=== PATIENT | male | born 1980 | race Caucasian/White ===

== ENCOUNTER 2019-06-09 16:46 | Emergency (ER) | payer OTHER, SELFPAY ==
[2019-06-09 17:10] VITALS: BP 116/83; PULSE 120; RESP 18; TEMP 36.5; O2SAT 98; BMI 24.0
--- NOTE | 2019-06-09 17:50 | ED_ITS ---
HPI - Abdominal Pain General: Chief Complaint: Abdominal Pain Stated Complaint: abd pain Time Seen by Provider: 06/09/19 17:45 History of Present Illness: HPI narrative: Kiet is a 39-year-old male who comes in complaining of a 3-day history of nausea vomiting and diarrhea. He states that he has not had a fever. Anytime she eats or drinks his symptoms become much worse. He denies any blood in the stools or black tarry stools. He denies anything similar in the past. He has had no ill contacts. Associated Symptoms: Reports diarrhea, nausea and vomiting; Denies chills, coffee ground emesis, constipation, GI cramping, dysuria, fever(s), hematochezia, hematuria, hematemesis, melena and syncope Review of Systems General: Reports: other (negative unless marked) Const: Denies: fever, chills, body aches, fatigue, malaise or diaphoresis Eyes: Denies: change in vision or blurry vision ENMT: Denies: throat pain, painful swallowing, hoarseness, ear pain, ear discharge, Change in hearing or nasal discharge Card: Denies: chest pain, palpitations, irregular heart rhythm, syncope, pre- syncope, shortness of breath on exertion or shortness of breath when lying down Resp: Denies: shortness of breath, productive cough, non-productive cough, wheezing, coughing up blood or chest congestion GI: Reports: abdominal pain, nausea, vomiting and diarrhea; Denies: vomiting blood, coffee grounds in vomit, constipation, cramping, blood in stool or black tarry stool : Denies: flank pain, difficulty urinating, painful urination, urinary frequency, urinary urgency, decreased urine ouput, urinary incontinence or blood in urine Musc: Denies: neck pain, back pain, extremity pain, extremity swelling, joint pain, joint swelling, joint warmth or joint stiffness Skin/Breast: Denies: rash, skin tenderness or yellow skin Neuro: Denies: headache, numbness in extremities, weakness in extremities, changes in sensation, lack of coordination, difficulty walking, dizziness, vertigo or confusion Endo: Denies: excessive thirst, tired all the time, cold intolerance, excessive sweating, flushing or hot flashes Jorge/Lymph: Denies: easy bruising, easy bleeding, petechiae or enlarged lymph nodes All/Imm: Denies: hives, throat swelling, tongue swelling, facial swelling or acute wheezing PFSH ED PFSH: Medical History No pertinent past medical history Surgical History History of surgery on left wrist Family History Father CAD (coronary artery disease) Mother Rheumatoid arthritis Social History Smoking and tobacco status: current every day smoker Alcohol intake: never Lives independently: Yes Household members: spouse Marital status: Physical Exam Const: COMMON NORMALS: no apparent distress, oriented x3, no limitations, healthy appearing and well nourished EXAM LIMITATIONS: no altered mental status GENERAL APPEARANCE: cooperative, well kempt and well developed ORIENTATION/CONSCIOUSNESS: Yes awake HENMT: COMMON NORMALS: normocephalic, head/scalp atraumatic, hearing grossly normal bilaterally, external ears normal, EAC's normal, external nose normal and moist oral mucous membranes HEAD & SCALP: normal to inspection, normocephalic and atraumatic FACE & SINUS: normal facial exam and face symmetric NOSE: external nose normal and nares normal EXTERNAL EAR: Yes external ears normal EXTERNAL AUDITORY CANAL: EAC's normal MOUTH: oral and palatal mucosa normal and tongue normal Eye: COMMON NORMALS: PERRL, EOMs intact bilaterally, conjunctivae normal and no scleral icterus GENERAL EYE: normal appearance of both eyes and normal light reflex CONJUNCTIVA: Yes conjunctivae normal SCLERA: sclerae normal CORNEA: Yes corneas normal PUPIL: Yes PERRL DIRECT OPHTHALMOSCOPY: Yes normal light reflex Neck/C-Spine: COMMON NORMALS: full ROM, no lymphadenopathy, supple, no meningeal signs and no JVD GENERAL: Yes normal visual inspection and Yes trachea midline CERVICAL SPINE: Yes cervical ROM normal Chest: COMMONS NORMALS: inspection of chest normal and palpation of chest normal Resp: COMMON NORMALS: normal respiratory effort, no retractions, no use of accessory muscles and clear to auscultation bilaterally EFFORT & INSPECTION: Yes able to speak in complete sentences AUSCULTATION: clear to auscultation bilaterally Cardio: COMMON NORMALS: no JVD, regular rate, regular rhythm, S1 normal heart sound, S2 normal heart sound, no gallops, no clicks, no murmurs and no rub JUGULAR VENOUS DISTENTION: no JVD RATE: regular rate RHYTHM: regular rhythm HEART SOUNDS: S1 normal and S2 normal GI: COMMON NORMALS: soft to palpation, no hepatosplenomegaly and no masses PALPATION: Yes soft, Yes tender Details: LLQ and RLQ and Yes no hepatosplenomegaly : COMMON NORMALS: Yes no CVA tenderness BLADDER/KIDNEY EXAM: Yes no CVA tenderness Back/Pelvis: COMMON NORMALS: no CVA tenderness, thoracic and lumbar spine normal to inspection, no thoracic nor lumbar tenderness and thoraco-lumbar ROM normal Extremity: COMMON NORMALS: normal to inspection, full ROM, normal capillary refill, no joint enlargement, no clubbing, cyanosis or edema and no calf tenderness Neuro: COMMON NORMALS: oriented x3, CN's II-XII intact bilaterally, moves all extremities, no focal motor deficits and no sensory deficits noted MENINGEAL SIGNS: Yes no meningeal signs Psych: COMMON NORMALS: mental status grossly normal, thought process normal, cooperative, affect normal, speech normal and activity/motor behavior normal APPEARANCE: Yes well kempt SPEECH: Yes normal speech THOUGHT PROCESS: normal thought process Skin: COMMON NORMALS: no rashes or lesions noted, skin turgor normal, no jaundice, no petechiae and no mottling GENERAL SKIN EXAM: no rashes or lesions noted and turgor normal Course Vital Signs: Vital signs: Vital Signs Temperature 97.7 F 06/09/19 17:10 Pulse Rate 120 H 06/09/19 17:10 Respiratory Rate 18 06/09/19 18:47 Blood Pressure 116/83 06/09/19 17:10 Pulse Oximetry 98 06/09/19 18:47 MDM - Abdominal Pain MDM Narrative: Medical decision making narrative: Patient CT scan is consistent with a gastroenteritis and a questionable cystitis. His urine does not really support a cystitis. I will treat him with Cipro and Flagyl to cover for both cystitis and a colitis/gastroenteritis. The patient is feeling much better now. His heart rate is back to normal and he is wanting to eat and drink as I work on my note. The patient is ready to go home but he does agree to return should his symptoms worsen or change. Lab Data: Labs: Lab Results 06/09/19 06/09/1906/08/20 Range/Units 18:00 18:00 18:03 WBC 18.0 H (4.0-10.0) 10^3/ uL RBC 5.64 H (4.1-5.3) 10^6/u L Hgb 18.2 H (11.7-16.6) g/dL Hct 54.0 H (42.0-52.0) % MCV 95.7 H (80-94) fL MCH 32.3 (28.0-34.0) pg MCHC 33.7 (30.0-36.0) g/dL RDW 12.4 (12.1-15.1) % Plt Count 486 H (130-400) 10^3/c mm MPV 9.4 (7.4-10.4) fL Neut % (Auto) 63.9 % Lymph % (Auto) 27.9 % Clarke % (Auto) 6.3 % Eos % (Auto) 0.9 % Baso % (Auto) 0.6 % Neut # (Auto) 11.5 H (1.8-7.7) 10^3/u L Lymph # (Auto) 5.0 H (0.8-4.8) 10^3/u L Clarke # (Auto) 1.1 H (0.2-0.9) 10^3/u L Eos # (Auto) 0.2 (0.0-0.8) 10^3/u L Baso # (Auto) 0.1 (0.0-0.1) 10^3/u L Nucleated RBC % (a uto) 0 % Nucleated RBCs # 0.0 /100WBC Sodium 134 L (136-145) mmol/L Potassium 4.0 (3.5-5.1) mmol/L Chloride 97 L (98-107) mmol/L Carbon Dioxide 23 (22-29) mmol/L Anion Gap 18.0 (5-19) BUN 16 (6-20) mg/dL Creatinine 1.2 (0.7-1.2) mg/dL GFR Calculation 67.4 L (90-130) mL/min Glucose 93 (65-115) mg/dL Calculated Osmolal ity 274 L (285-295) mOsm/k g Lactic Acid (0.5-2.2) mmol/L Calcium 10.4 (8.5-10.5) mg/dL Total Bilirubin 0.4 (0.15-1.2) mg/dL AST 18 (0-40) U/L ALT 21 (0-41) U/L Alkaline Phosphata se 107 (40-130) IU/L Total Protein 7.3 (6.6-8.7) g/dL Albumin 4.5 (3.5-5.2) g/dL Globulin 2.8 (1.3-4.6) g/dL Urine Color Yellow (Yellow) Urine Appearance Clear (CLEAR) Urine pH 6.5 (5-7) Ur Specific Gravit y 1.015 (1.005-1.030) Urine Protein Trace (Negative) Urine Glucose (UA) Norm (Normal) Urine Ketones 1+ H (Negative) Urine Blood Neg (Negative) Urine Nitrate Negative (Negative) Urine Bilirubin 1+ H (NEGATIVE) Urine Urobilinogen 8 H (Negative) mg/dL Ur Leukocyte Syeda ase Negative (Negative) Urine RBC None (0-2) /hpf Urine WBC 0-4 H (0-5) /hpf Ur Squamous Epith Cells 0-4 H (0-5) Urine Bacteria Trace (NONE) Urine Mucus 4+ 04/16/20 Range/Units 18:30 WBC (4.0-10.0) 10^3/ uL RBC (4.1-5.3) 10^6/u L Hgb (11.7-16.6) g/dL Hct (42.0-52.0) % MCV (80-94) fL MCH (28.0-34.0) pg MCHC (30.0-36.0) g/dL RDW (12.1-15.1) % Plt Count (130-400) 10^3/c mm MPV (7.4-10.4) fL Neut % (Auto) % Lymph % (Auto) % Clarke % (Auto) % Eos % (Auto) % Baso % (Auto) % Neut # (Auto) (1.8-7.7) 10^3/u L Lymph # (Auto) (0.8-4.8) 10^3/u L Clarke # (Auto) (0.2-0.9) 10^3/u L Eos # (Auto) (0.0-0.8) 10^3/u L Baso # (Auto) (0.0-0.1) 10^3/u L Nucleated RBC % (a uto) % Nucleated RBCs # /100WBC Sodium (136-145) mmol/L Potassium (3.5-5.1) mmol/L Chloride (98-107) mmol/L Carbon Dioxide (22-29) mmol/L Anion Gap (5-19) BUN (6-20) mg/dL Creatinine (0.7-1.2) mg/dL GFR Calculation (90-130) mL/min Glucose (65-115) mg/dL Calculated Osmolal ity (285-295) mOsm/k g Lactic Acid 1.4 (0.5-2.2) mmol/L Calcium (8.5-10.5) mg/dL Total Bilirubin (0.15-1.2) mg/dL AST (0-40) U/L ALT (0-41) U/L Alkaline Phosphata se (40-130) IU/L Total Protein (6.6-8.7) g/dL Albumin (3.5-5.2) g/dL Globulin (1.3-4.6) g/dL Urine Color (Yellow) Urine Appearance (CLEAR) Urine pH (5-7) Ur Specific Gravit y (1.005-1.030) Urine Protein (Negative) Urine Glucose (UA) (Normal) Urine Ketones (Negative) Urine Blood (Negative) Urine Nitrate (Negative) Urine Bilirubin (NEGATIVE) Urine Urobilinogen (Negative) mg/dL Ur Leukocyte Syeda ase (Negative) Urine RBC (0-2) /hpf Urine WBC (0-5) /hpf Ur Squamous Epith Cells (0-5) Urine Bacteria (NONE) Urine Mucus Discharge Plan Discharge Patient Disposition: Home, Self-Care Clinical Impression: Gastroenteritis, Cystitis Condition: Stable Prescriptions: New Zofran 4 mg tablet 4 mg PO Q6H PRN (Reason: nausea and vomiting) Qty: 20 RF: 0 Flagyl 500 mg tablet 500 mg PO TID 10 Days Qty: 30 RF: 0 Cipro 500 mg tablet 500 mg PO BID Qty: 20 RF: 0 Discharge Orders: Discharge Order (Routine); Ordered 06/09/19 Ordered By: Crystal Benítez Referrals: Cresencio Lucero FNP-C [Primary Care Provider] - 1-3 days Discharge Diet: Advance as tolerated Discharge Activity: Increase activity as tolerated Patient Instructions: Dehydration (ED), Urinary Tract Infection in Men (ED), Gastroenteritis (ED), Acute Nausea and Vomiting (ED) Activity Restrictions/Additional Instructions: Please return to the ER immediately for any of the signs or symptoms listed on your discharge instruction sheets, worsening/changing of your symptoms, you are not getting better as quickly as expected, or for ANY other cause or concerns. Stand Alone Forms: Work/School Release Coding Level of Care Code ED Source Water Protection Specialist for Chg Fwd Exam Comprehensive
--- NOTE | 2019-06-09 17:50 | CTR_ITS ---
PROCEDURE INFORMATION: Exam: CT Abdomen And Pelvis With Contrast Exam date and time: 06/09/2019 7:20 PM Age: 39 years old Clinical indication: Other: Vomits after eating; Abdominal pain; Localized; Lower TECHNIQUE: Imaging protocol: Computed tomography of the abdomen and pelvis with intravenous contrast. Total DLP: 648.32 mGy-cm Radiation optimization: All CT scans at this facility use at least one of these dose optimization techniques: automated exposure control; mA and/or kV adjustment per patient size (includes targeted exams where dose is matched to clinical indication); or iterative reconstruction. Contrast material: OMNI 300; Contrast volume: 95 ml; Contrast route: IV; COMPARISON: [facility] Thorac/Abd Aor [id number] 02/17/2015 6:34 PM FINDINGS: Lungs: Limited assessment lung bases clear. Liver: Unremarkable. No mass. Gallbladder and bile ducts: Normal. No calcified stones. No ductal dilation. Pancreas: Normal. No ductal dilation. Spleen: Normal. No splenomegaly. Adrenals: Normal. No mass. Kidneys and ureters: Normal. No hydronephrosis. Stomach and bowel: Examination reveals gastric mucosal thickening and increased enhancement. Diffuse duodenal and jejunal mucosal thickening and enhancement. The a for mention findings would be consistent with gastroenteritis. Diverticulosis coli without evidence for diverticulitis. Nonobstructive bowel pattern. No evidence for adynamic ileus. No evidence for ileitis. Appendix: Appendix noninflamed. Intraperitoneal space: Unremarkable. No free air. No significant fluid collection. Vasculature: The abdominal aorta is nonaneurysmal. Minimal arterial sclerotic disease. Lymph nodes: No evidence for acute mesenteritis/panniculitis or mesenteric lymphadenitis/lymphadenopathy. Bladder: Small amount of free air within the urinary bladder with diffuse bladder wall thickening. This suggest the potential for active/acute bacterial cystitis. Tiny bladder stone. Reproductive: Unremarkable as visualized. Bones/joints: Rare bone island. No visible acute osseous abnormality. Moderate degenerative disc disease L5/S1. Bilateral spondylolysis L5/S1 with mild anterior grade 1 spondylolisthesis. Soft tissues: Unremarkable. CT/CT abdomen pelvis w con* [id number] IMPRESSION: 1. Acute gastroenteritis. 2. Findings consistent with active/acute cystitis. 3. Tiny bladder stone. Radiation Dose CTDIVOL = (mGy): DLP = 648.32 (mGy-cm)
[2019-06-09 18:17] LABS: Basophils # 0.1 10^3/uL (0.0-0.1); Basophils % 0.6 %; Eosinophils # 0.2 10^3/uL (0.0-0.8); Eosinophils % 0.9 %; Hemoglobin 18.2 g/dL (11.7-16.6); Lymphocytes % 27.9 %; Mean Corpuscular HGB Conc 33.7 g/dL (30.0-36.0); Mean Corpuscular Hemoglobin 32.3 pg (28.0-34.0); Mean Corpuscular Volume 95.7 fL (80-94); Mean Platelet Volume 9.4 fL (7.4-10.4); Monocytes # 1.1 10^3/uL (0.2-0.9); Monocytes % 6.3 %; Neutrophils # 11.5 10^3/uL (1.8-7.7); Neutrophils % 63.9 %; Nucleated Red Blood Cells % 0 %; Platelet Count 486 10^3/cmm (130-400); Red Blood Count 5.64 10^6/uL (4.1-5.3); Red Cell Distribution Width 12.4 % (12.1-15.1)
[2019-06-09 18:29] LABS: Albumin Level 4.5 g/dL (3.5-5.2); Chloride 97 mmol/L (98-107); Sodium 134 mmol/L (136-145)
[2019-06-09 18:44] LABS: Glucose Urine UA Norm (Normal); Ketones Urine 1+ (Negative); Protein Urine Trace (Negative); Specific Gravity, Urine 1.015 (1.005-1.030); Urine Appearance Clear (CLEAR); Urine Color Yellow (Yellow); pH Urine 6.5 (5-7)
[2019-06-09 18:45] LABS: Add Urine Culture? No; Bacteria Urine TRACE; Bilirubin Urine 1+ (NEGATIVE); Blood Urine Neg (Negative); Leukocyte Esterase Urine Negative (Negative); Mucus Urine 4+; Nitrate Urine Negative (Negative); Squamous Epithelial Cell Urine 0-4 (0-5); Urobilinogen Urine 8 mg/dL (Negative); WBC Urine 0-4 /hpf (0-5)
[2019-06-09] MEDS: sodium chloride 0.9% 1,000 ML 999 ML IV ×2 (18:45→20:08)
[2019-06-09] MEDS: ondansetron 2 mg/ML SDV 2 mL 4 MG IVP (18:46)
[2019-06-09 18:47] VITALS: RESP 18; O2SAT 98
[2019-06-09] MEDS: morphine 4 mg/mL SDV 1 mL IVP (18:47)
[2019-06-09 19:08] LABS: Lactic Sepsis W/Reflex 1.4 mmol/L (0.5-2.2)
[2019-06-09 19:19] LABS: Alanine Aminotransferase 21 U/L (0-41); Alkaline Phosphatase 107 IU/L (40-130); Aspartate Amino Transferase 18 U/L (0-40); Blood Urea Nitrogen 16 mg/dL (6-20); Calcium 10.4 mg/dL (8.5-10.5); Carbon Dioxide 23 mmol/L (22-29); Globulin 2.8 g/dL (1.3-4.6); Glomerular Filtration Rate 67.4 mL/min (90-130); Glucose 93 mg/dL (65-115); Osmolality Calculated 274 mOsm/kg (285-295); Total Bilirubin 0.4 mg/dL (0.15-1.2); Total Protein 7.3 g/dL (6.6-8.7)
[2019-06-09] MEDS: iohexol 300 mg/mL 100 mL Btl IV (19:31)
[2019-06-09] MEDS: metroNIDAZOLE 500 MG Tablet PO (20:25)
[2019-06-09] MEDS: ciprofloxacin 500 mg Tablet PO (20:25)
[2019-06-09 20:42] VITALS: BP 134/86; PULSE 86; RESP 16; O2SAT 96
== END 2019-06-09 20:42 | disposition home or self-care (01) ==
PROVIDERS: Emergency Provider Emergency Medicine; Family Provider Nurse Practitioner; PCP Nurse Practitioner
DX: K52.9 Noninfective gastroenteritis and colitis, unspecified (principal); N30.90 Cystitis, unspecified without hematuria; Z82.49 Family history of ischemic heart disease and other diseases of the circulatory system; F17.210 Nicotine dependence, cigarettes, uncomplicated
CPT/HCPCS: 12345; 36415; 74177; 80053; 81000; 81001; 83605; 85025; 96361; 96374; 96375; 99283; 99284; J2270; J2405; J7030; Q9967

== ENCOUNTER 2019-07-26 10:36 | Emergency (ER) | payer OTHER, SELFPAY ==
[2019-07-26 10:53] VITALS: BP 136/96; PULSE 85; RESP 16; TEMP 36.4; O2SAT 99; BMI 24.4
--- NOTE | 2019-07-26 11:10 | W.ED.NAVMDI ---
HPI - Nausea/Vomiting/Diarrhea General: Chief complaint: Nausea/Vomiting/Diarrhea Stated complaint: N/V Time Seen by Provider: 07/26/19 10:39 Source: patient Mode of arrival: ambulatory History of Present Illness: HPI Narrative: NV x 4 days; unable to hold any liquids down MD elicited complaint: nausea, vomiting, diarrhea and abdominal pain (epigastric) Associated nausea: Yes Associated symtoms: Reports nausea Review of Systems General: Reports: 10 or more systems reviewed and unremarkable except in HPI and below Const: Reports: body aches; Denies: fever(s) or chills GI: Reports: abdominal pain, nausea, vomiting and diarrhea PFSH ED PFSH: Medical History No pertinent past medical history Surgical History History of surgery on left wrist Family History Father CAD (coronary artery disease) Mother Rheumatoid arthritis Social History Smoking and tobacco status: current every day smoker Alcohol intake: never Lives independently: Yes Household members: spouse Marital status: Physical Exam Const: COMMON NORMALS: no acute distress, patient oriented x3, no limitations and alert GENERAL APPEARANCE: cooperative and comfortable ORIENTATION/CONSCIOUSNESS: Yes awake, Yes oriented to person, Yes oriented to place and Yes oriented to time HENMT: COMMON NORMALS: normocephalic, atraumatic, external ears normal, EAC's normal, TM's normal bilaterally and Normal external nose present HEAD & SCALP: normal to inspection, normocephalic and atraumatic FACE & SINUS: normal facial exam, sinuses nontender and face symmetric NOSE: Normal external nose present, Normal nares present and No nasal discharge present EXTERNAL EAR: Yes external ears normal EXTERNAL AUDITORY CANAL: EAC's normal TYMPANIC MEMBRANE: TM's normal bilaterally MOUTH: Normal oral and palatal mucosa present, lip normal and tongue normal THROAT: posterior oropharynx normal, tonsils normal and uvula midline Eye: COMMON NORMALS: Equal, round and reactive pupils present, EOMs intact bilaterally and conjunctivae normal GENERAL EYE: appearance normal, both eyes and all related structures and normal light reflex EYELID: eyelids normal CONJUNCTIVA: Yes conjunctivae normal PUPIL: Yes Equal, round and reactive pupils present EOM: Yes EOM abnormal DIRECT OPHTHALMOSCOPY: Yes normal light reflex Neck/C-Spine: COMMON NORMALS: full ROM, no lymphadenopathy, supple, no meningeal signs, no JVD and Thyroid normal GENERAL: Yes normal visual inspection THYROID: Thyroid normal CERVICAL SPINE: Yes cervical ROM normal and Yes normal cervical lordosis Lymph: LYMPHATIC: no lymphadenopathy noted Chest: COMMONS NORMALS: normal inspection of the chest and normal palpation of entire chest wall Resp: COMMON NORMALS: normal respiratory effort, No retractions and clear to auscultation bilaterally AUSCULTATION: clear to auscultation bilaterally Cardio: COMMON NORMALS: no JVD, regular rate, regular rhythm, S1 normal heart sound present, S2 normal heart sound present, No gallops present (Cardio), No clicks present (Cardio), No murmurs present (Cardio), No rub (Cardio) and Peripheral pulses 2+ throughout RATE: regular rate RHYTHM: regular rhythm HEART SOUNDS: S1 normal heart sound present and S2 normal heart sound present PERIPHERAL PULSES: Peripheral pulses 2+ throughout GI: COMMON NORMALS: Normal to inspection, nondistended, normoactive bowel sounds present, Soft to palpation, non-tender and no masses PALPATION: Yes Soft to palpation : COMMON NORMALS: Yes no CVA tenderness BLADDER/KIDNEY EXAM: Yes no CVA tenderness Back/Pelvis: COMMON NORMALS: no CVA tenderness, thoracic and lumbar spine normal to inspection, no thoracic nor lumbar tenderness and thoraco-lumbar ROM normal Extremity: COMMON NORMALS: normal to inspection, full ROM, capillary refill normal, no joint enlargement, no clubbing, cyanosis or edema, no calf tenderness and no pedal edema GENERAL: Yes normal exam except as noted Neuro: COMMON NORMALS: patient oriented x3, moves all extremities, no focal motor deficits, no sensory deficits noted and gait normal SENSORIUM/ORIENTATION: Yes alert, Yes oriented to person, Yes oriented to place and Yes oriented to time MENINGEAL SIGNS: Yes no meningeal signs Psych: COMMON NORMALS: mental status grossly normal, Normal thought process present, cooperative, normal affect, speech normal and activity/motor behavior normal SPEECH: Yes normal speech THOUGHT PROCESS: Normal thought process present Skin: COMMON NORMALS: no rashes or lesions noted, no wounds and turgor normal GENERAL SKIN EXAM: no rashes or lesions noted and turgor normal Course ED course: Pt prsents to ER with complaint of NV excessively x 4 days. He is weak and urinating very little. He cannot hold water down. 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 IV fluids and labs ordered. Vitals stable upon arrival. Reevaluation(s): Reevaluation #1: US gb ordered; WBC elevated at 17. CT recommends further imaging of GB due to stones. Negative colon findings. Time: 13:20 Reevaluation #2: US indicates no thickening of gb wall. Dr. Watson called. GI cocktail ordered and with elevated wbc and no ct or US acute findings of cholecystitis will treat like gastroenteritis. IV antibx were given prophylactically as pt is does not require hospital admission at this time and has improved overall since his arrival. We will DC after infusion of antibx and oral meds given. Time: 15:11 Vital Signs: Vital signs: Vital Signs Temperature 97.6 F 07/26/19 10:53 Pulse Rate 85 07/26/19 10:53 Respiratory Rate 16 07/26/19 10:53 Blood Pressure 136/96 07/26/19 10:53 Pulse Oximetry 99 07/26/19 10:53 MDM - Nausea/Vomiting/Diarrhea Lab Data: Labs: Lab Results 07/26/19 07/26/19 07/26/19 Range/Units 11:16 11:17 11:17 WBC 17.9 H (4.0-10.0) 10^3/ uL RBC 5.54 H (4.1-5.3) 10^6/u L Hgb 17.7 H (11.7-16.6) g/dL Hct 51.8 (42.0-52.0) % MCV 93.5 (80-94) fL MCH 31.9 (28.0-34.0) pg MCHC 34.2 (30.0-36.0) g/dL RDW 12.3 (12.1-15.1) % Plt Count 473 H (130-400) 10^3/c mm MPV 10.2 (7.4-10.4) fL Neut % (Auto) 75.3 % Lymph % (Auto) 18.5 % [place] % (Auto) 4.8 % Eos % (Auto) 0.5 % Baso % (Auto) 0.5 % Neut # (Auto) 13.5 H (1.8-7.7) 10^3/u L Lymph # (Auto) 3.3 (0.8-4.8) 10^3/u L [place] # (Auto) 0.9 (0.2-0.9) 10^3/u L Eos # (Auto) 0.1 (0.0-0.8) 10^3/u L Baso # (Auto) 0.1 (0.0-0.1) 10^3/u L Nucleated RBC % (a uto) 0 % Nucleated RBCs # 0.0 /100WBC Sodium 135 L (136-145) mmol/L Potassium 4.4 (3.5-5.1) mmol/L Chloride 100 (98-107) mmol/L Carbon Dioxide 23 (22-29) mmol/L Anion Gap 16.4 (5-19) BUN 15 (6-20) mg/dL Creatinine 1.0 (0.7-1.2) mg/dL GFR Calculation 83.2 L (90-130) mL/min Glucose 104 (65-115) mg/dL Calculated Osmolal ity 277 L (285-295) mOsm/k g Calcium 10.2 (8.5-10.5) mg/dL Total Bilirubin 0.7 (0.15-1.2) mg/dL AST 17 (0-40) U/L ALT 26 (0-41) U/L Alkaline Phosphata se 106 (40-130) IU/L Total Protein 7.3 (6.6-8.7) g/dL Albumin 4.7 (3.5-5.2) g/dL Globulin 2.6 (1.3-4.6) g/dL Urine Color Yellow (Yellow) Urine Appearance Clear (CLEAR) Urine pH 7.0 (5-7) Ur Specific Gravit y 1.010 (1.005-1.030) Urine Protein Neg (Negative) Urine Glucose (UA) Norm (Normal) Urine Ketones 1+ H (Negative) Urine Blood Neg (Negative) Urine Nitrate Negative (Negative) Urine Bilirubin Neg (NEGATIVE) Urine Urobilinogen 1 H (Negative) mg/dL Ur Leukocyte Syeda ase Negative (Negative) Imaging Data^: Other CT: Radiologist's impression: [id number] Study Date: 07/26/2019 12:02:41 PM Order #: [id number] Report Status: Finalized Reason: abd pain/nv [facility] [address] [place] [address] CT Scan Report Signed Patient: Kiet Hicks Unit #: [id number] : 1980 Age/Sex: 39 / M ADM Date: 07/26/19 Loc: ER Room/Bed: Attending Dr: Ordering Provider/Ordering MD: Susan Sandhu NP Date of Service: 07/26/19 Procedure(s): CT abdomen wo/w con [id number] Accession Number(s): [id number] Report Number: [id number] WS: [id number] CT abdomen wo/w con [id number] REASON FOR EXAM: abd pain/nv IV CONTRAST ADMINISTERED: [place] 300, 95 mL TOTAL EXAM DLP: 1185.[address] scans at [facility] use at least one of these dose optimization techniques: automated exposure control; mA and/or kV adjustment per patient size (includes targeted exams where dose is matched to clinical indication); or iterative reconstruction. FINDINGS: The lower lung perez and mediastinum appear to be normal. The liver show normal appearance no infiltrating lesions. Gallbladder shows small densities along the inferior aspects suggesting gallstones. The pancreas was normal. Stomach showed no filling defects. The ascending colon shows fecal stasis no definite masses. No acute appendicitis is noted. Both kidneys were normal with normal appearance no stones no hydronephrosis. No adrenal glands were normal no masses. The transverse colon and descending colon show diverticulosis. This extends down into the sigmoid colon no diverticulitis is seen. The urinary bladder today was normal in appearance the crawley were not thickened Prostate. 5.2 x 7 cm no infiltrating lesions are seen. The pelvis bony structures were normal as well as the lumbar spine. CT/CT abdomen wo/w con [id number] Impression: Questionable small gallstone. Fecal stasis throughout the colon Diverticulosis of the transverse descending and sigmoid colon. No diverticulitis. Mildly enlarged prostate Recommend ultrasound of the gallbladder be made to definitely rule out stones as the colon on the CT are minimal. Dictated By: Cooper Miramontes DO Signed By: Cooper Miramontes DO Signed Date/Time: 07/26/19 1243 US: Radiologist's impression: [address] [address] Ultrasound Report Signed Patient: Kiet Hicks Unit #: [id number] : 1980 Age/Sex: 39 / M ADM Date: 07/26/19 Loc: ER Room/Bed: Attending Dr: Ordering Provider/Ordering MD: Susan Sandhu NP Date of Service: 07/26/19 Procedure(s): US gall bladder 78702 Accession Number(s): [id number] Report Number: [id number] WS: [id number] ABDOMINAL ULTRASOUND LIMITED REASON FOR VISIT: abd pain TECHNIQUE: Grayscale and Doppler ultrasound examination of the abdomen. FINDINGS: Pancreas: Normal Abdominal aorta and IVC: Normal Liver: Liver measures 14.7 cm in length. Hepatopedal circulation the portal system. No mass is seen. Gallbladder: Gallbladder wall thickness measures 0.2 mm. No stones or polyps. Common bile duct measured 0.40 cm. Right kidney: Right kidney measures 10.5 cm x 5.3 cm x 5.0 cm. Hydronephrosis no stones. US/US gall bladder [id number] IMPRESSION: Normal right upper quadrant ultrasound. Dictated By: Cooper Miramontes DO Signed By: Cooper Miramontes DO Signed Date/Time: 07/26/19 1410 DD/ 1408 Discharge Plan Discharge Prescriptions: No Action No Known Home Medications RF: 0 Coding Level of Care Code ED Tube Builder Airplane for Chg Fwd Exam Comprehensive
[2019-07-26] MEDS: sodium chloride 0.9% 500 ML 999 ML IV (11:21)
[2019-07-26] MEDS: ondansetron 2 mg/ML SDV 2 mL 4 MG IVP ×2 (11:22→15:15)
[2019-07-26 11:31] LABS: Basophils # 0.1 10^3/uL (0.0-0.1); Basophils % 0.5 %; Eosinophils # 0.1 10^3/uL (0.0-0.8); Eosinophils % 0.5 %; Hematocrit 51.8 % (42.0-52.0); Hemoglobin 17.7 g/dL (11.7-16.6); Lymphocytes # 3.3 10^3/uL (0.8-4.8); Lymphocytes % 18.5 %; Mean Corpuscular HGB Conc 34.2 g/dL (30.0-36.0); Mean Corpuscular Hemoglobin 31.9 pg (28.0-34.0); Mean Corpuscular Volume 93.5 fL (80-94); Mean Platelet Volume 10.2 fL (7.4-10.4); Monocytes # 0.9 10^3/uL (0.2-0.9); Monocytes % 4.8 %; Neutrophils # 13.5 10^3/uL (1.8-7.7); Neutrophils % 75.3 %; Nucleated Red Blood Cells % 0 %; Platelet Count 473 10^3/cmm (130-400); Red Blood Count 5.54 10^6/uL (4.1-5.3); Red Cell Distribution Width 12.3 % (12.1-15.1); White Blood Count 17.9 10^3/uL (4.0-10.0)
[2019-07-26 11:48] LABS: Alanine Aminotransferase 26 U/L (0-41); Albumin Level 4.7 g/dL (3.5-5.2); Alkaline Phosphatase 106 IU/L (40-130); Anion Gap 16.4 (5-19); Aspartate Amino Transferase 17 U/L (0-40); Blood Urea Nitrogen 15 mg/dL (6-20); Calcium 10.2 mg/dL (8.5-10.5); Carbon Dioxide 23 mmol/L (22-29); Chloride 100 mmol/L (98-107); Globulin 2.6 g/dL (1.3-4.6); Glomerular Filtration Rate 83.2 mL/min (90-130); Glucose 104 mg/dL (65-115); Osmolality Calculated 277 mOsm/kg (285-295); Potassium 4.4 mmol/L (3.5-5.1); Sodium 135 mmol/L (136-145); Total Bilirubin 0.7 mg/dL (0.15-1.2); Total Protein 7.3 g/dL (6.6-8.7)
--- NOTE | 2019-07-26 11:53 | CT_ITS ---
WS: [id number] CT abdomen wo/w con [id number] REASON FOR EXAM: abd pain/nv IV CONTRAST ADMINISTERED: Opaque 300, 95 mL TOTAL EXAM DLP: 1185.[address] scans at [facility] use at least one of these dose optimization techniques: automat ed exposure control; mA and/or kV adjustment per patient size (includes targeted exams where dose is matched to clinical indication); or iterative reconstruction. FINDINGS: The lower lung perez and mediastinum appear to be normal. The liver show normal appearance no infiltrating lesions. Gallbladder shows small densities along the inferior aspects suggesting gallstones. The pancreas was normal. Stomach showed no filling defects. The ascending colon shows fecal stasis no definite masses. No acute appendicitis is noted. Both kidneys were normal with normal appearance no stones no hydronephrosis. No adrenal glands were normal no masses. The transverse colon and descending colon show diverticulosis. This extends down into the sigmoid col on no diverticulitis is seen. The urinary bladder today was normal in appearance the crawley were not thickened Prostate. 5.2 x 7 cm no infiltrating lesions are seen. The pelvis bony structures were normal as well as the lumbar spine. CT/CT abdomen wo/w con [id number] Impression: Questionable small gallstone. Fecal stasis throughout the colon Diverticulosis of the transverse descending and sigmoid colon. No diverticuliti s. Mildly enlarged prostate Recommend ultrasound of the gallbladder be made to definitely rule out stones a s the colon on the CT are minimal.
[2019-07-26] MEDS: iohexol 300 mg/mL 100 mL Btl IV (12:11)
--- NOTE | 2019-07-26 12:59 | US_ITS ---
WS: [id number] ABDOMINAL ULTRASOUND LIMITED REASON FOR VISIT: abd pain TECHNIQUE: Grayscale and Doppler ultrasound examination of the abdomen. FINDINGS: Pancreas: Normal Abdominal aorta and IVC: Normal Liver: Liver measures 14.7 cm in length. Hepatopedal circulation the portal system. No mass is seen. Gallbladder: Gallbladder wall thickness measures 0.2 mm. No stones or polyps. Common bile duct measur ed 0.40 cm. Right kidney: Right kidney measures 10.5 cm x 5.3 cm x 5.0 cm. Hydronephrosis no stones. US/US gall bladder [id number] IMPRESSION: Normal right upper quadrant ultrasound.
[2019-07-26 13:03] LABS: Add Urine Microscopic? NO
[2019-07-26 13:06] LABS: Bilirubin Urine Neg (NEGATIVE); Blood Urine Neg (Negative); Glucose Urine UA Norm (Normal); Ketones Urine 1+ (Negative); Leukocyte Esterase Urine Negative (Negative); Nitrate Urine Negative (Negative); Protein Urine Neg (Negative); Urine Appearance Clear (CLEAR); Urine Color Yellow (Yellow); Urobilinogen Urine 1 mg/dL (Negative)
[2019-07-26] MEDS: piperacillin-tazobactam 3.375 GM in sodium chloride 0.9% (plus) 50 ML IV (15:00)
[2019-07-26] MEDS: nicotine 21 mg Patch 1 PATCH TRANSDERMA (15:15)
[2019-07-26 15:16] VITALS: RESP 18
[2019-07-26] MEDS: morphine 4 mg/mL SDV 1 mL IVP (15:16)
[2019-07-26] MEDS: lidocaine 2% viscous 15 ML, aluminum-mag hydrox-simethicon 30 ML, sucralfate oral liq 1 GM PO (16:11)
[2019-07-26 16:41] VITALS: BP 129/87; PULSE 98; RESP 18; O2SAT 99
== END 2019-07-26 16:43 | disposition home or self-care (01) ==
PROVIDERS: Emergency Provider Nurse Practitioner Family; PCP Nurse Practitioner
DX: R11.2 Nausea with vomiting, unspecified (principal); F17.210 Nicotine dependence, cigarettes, uncomplicated
CPT/HCPCS: 12345; 36415; 74170; 76705; 80053; 81003; 85025; 96365; 96375; 96376; 99282; 99283; J2270; J2405; J2543; J7040; Q9967

== ENCOUNTER 2019-07-29 14:09 | Emergency (ER) | payer OTHER, SELFPAY ==
[2019-07-29 14:15] VITALS: BP 153/95; PULSE 93; RESP 18; TEMP 36.7; O2SAT 99; BMI 23.7
[2019-07-29] MEDS: lidocaine 2% viscous 15 ML, aluminum-mag hydrox-simethicon 30 ML, sucralfate oral liq 1 GM PO (16:09)
[2019-07-29 16:21] LABS: Basophils # 0.1 10^3/uL (0.0-0.1); Basophils % 0.6 %; Eosinophils # 0.2 10^3/uL (0.0-0.8); Eosinophils % 1.5 %; Hematocrit 51.6 % (42.0-52.0); Hemoglobin 17.4 g/dL (11.7-16.6); Lymphocytes # 2.6 10^3/uL (0.8-4.8); Lymphocytes % 19.9 %; Mean Corpuscular HGB Conc 33.7 g/dL (30.0-36.0); Mean Corpuscular Hemoglobin 31.2 pg (28.0-34.0); Mean Corpuscular Volume 92.6 fL (80-94); Mean Platelet Volume 9.3 fL (7.4-10.4); Monocytes # 0.7 10^3/uL (0.2-0.9); Monocytes % 5.4 %; Neutrophils # 9.4 10^3/uL (1.8-7.7); Neutrophils % 72.2 %; Nucleated Red Blood Cells % 0 %; Platelet Count 519 10^3/cmm (130-400); Red Blood Count 5.57 10^6/uL (4.1-5.3); Red Cell Distribution Width 12.3 % (12.1-15.1); White Blood Count 13.1 10^3/uL (4.0-10.0)
[2019-07-29 17:40] LABS: Alanine Aminotransferase 33 U/L (0-41); Alkaline Phosphatase 106 IU/L (40-130); Anion Gap 19.6 (5-19); Aspartate Amino Transferase 19 U/L (0-40); Blood Urea Nitrogen 10 mg/dL (6-20); Calcium 9.8 mg/dL (8.5-10.5); Carbon Dioxide 21 mmol/L (22-29); Chloride 102 mmol/L (98-107); Creatinine Clr Calc Pharmacy 125.6247; Globulin 2.4 g/dL (1.3-4.6); Glomerular Filtration Rate 93.9 mL/min (90-130); Glucose 96 mg/dL (65-115); Lipase 67 U/L (13-60); Osmolality Calculated 282 mOsm/kg (285-295); Potassium 4.6 mmol/L (3.5-5.1); Sodium 138 mmol/L (136-145); Total Bilirubin 0.5 mg/dL (0.15-1.2); Total Protein 7.4 g/dL (6.6-8.7)
[2019-07-29 17:41] LABS: Lactate (Lactic Acid level) 0.9 mmol/L (0.5-2.2)
[2019-07-29 18:02] LABS: Alcohol Level < 10 mg/dL (0-10)
[2019-07-29 18:18] LABS: C Reactive Protein 3.5 mg/L (0.0-4.9)
--- NOTE | 2019-07-29 18:32 | W.ED.ABDPA2 ---
HPI - Abdominal Pain General: Chief Complaint: Abdominal Pain Stated Complaint: abd pain Time Seen by Provider: 07/29/19 15:00 Source: patient Mode of arrival: ambulatory Limitations: no limitations History of Present Illness: HPI narrative: Patient was seen 3 days ago for similar symptoms, at that time a CT scan and ultrasound of his gallbladder were unremarkable. The patient was under the impression that he had thickening of the wall of his gallbladder. He presents because he has continued pain as well as nausea and vomiting. No fever, vomitus contains stomach contents. No blood in vomitus. No sick contacts. MD elicited complaint: abdominal pain Onset (ago): day(s) (3) Pain Consistency: constant Location: Epigastric Severity: severe Quality: sharp Radiation: none Migration to: no migration Exacerbating factors: nothing Relieving factors: nothing Associated Symptoms: Reports no associated symptoms, nausea and vomiting; Denies chills, dysuria and fever(s) Review of Systems General: Reports: 10 or more systems reviewed and unremarkable except in HPI and below Const: Denies: fever(s), chills or body aches Eyes: Denies: change in vision or blurry vision ENMT: Denies: throat pain, enlarged tonsils, odynophagia, hoarseness, mouth pain or swelling of lips/tongue Card: Denies: chest pain, palpitations, irregular heart rhythm, edema or swelling of feet/ankles Resp: Denies: dyspnea, productive cough or non-productive cough GI: Reports: abdominal pain, nausea and vomiting : Denies: flank pain, dysuria, urinary frequency, urinary urgency or urinary hesitancy Musc: Denies: neck pain, back pain or extremity swelling Skin/Breast: Denies: rash, pruritus or erythema Neuro: Denies: headache(s), numbness in extremities or weakness in extremities Endo: Denies: polyuria, polydipsia or tired all the time [facility] ED PFSH: Medical History (Updated 07/29/19 @ 18:37 by Jen Weller MD, [facility]) No pertinent past medical history Surgical History History of surgery on left wrist Family History Father CAD (coronary artery disease) Mother Rheumatoid arthritis Social History Smoking and tobacco status: current every day smoker Alcohol intake: never Lives independently: Yes Household members: spouse Marital status: Physical Exam Const: COMMON NORMALS: no acute distress, average body habitus, patient oriented x3, no limitations, healthy appearing, alert and well nourished HENMT: COMMON NORMALS: normocephalic, atraumatic and moist oral mucous membranes HEAD & SCALP: normocephalic and atraumatic Eye: COMMON NORMALS: Equal, round and reactive pupils present, EOMs intact bilaterally, conjunctivae normal and no scleral icterus CONJUNCTIVA: Yes conjunctivae normal PUPIL: Yes Equal, round and reactive pupils present Neck/C-Spine: COMMON NORMALS: full ROM, supple, no meningeal signs, no JVD and No carotid bruits Resp: COMMON NORMALS: normal respiratory effort, No retractions, No use of accessory muscles, clear to auscultation bilaterally and percussion normal AUSCULTATION: clear to auscultation bilaterally PERCUSSION: percussion normal Cardio: COMMON NORMALS: no JVD, regular rate, regular rhythm, S1 normal heart sound present, S2 normal heart sound present, No gallops present (Cardio), No clicks present (Cardio), No murmurs present (Cardio), No rub (Cardio) and Peripheral pulses 2+ throughout RATE: regular rate RHYTHM: regular rhythm HEART SOUNDS: S1 normal heart sound present and S2 normal heart sound present PERIPHERAL PULSES: Peripheral pulses 2+ throughout GI: COMMON NORMALS: Normal to inspection, nondistended, normoactive bowel sounds present, Soft to palpation, No hepatosplenomegaly present, no masses and no bruits PALPATION: Yes Soft to palpation, Yes Tenderness to palpation present (GI) (epigastric) and Yes No hepatosplenomegaly present : COMMON NORMALS: Yes no CVA tenderness BLADDER/KIDNEY EXAM: Yes no CVA tenderness Back/Pelvis: COMMON NORMALS: no CVA tenderness Extremity: COMMON NORMALS: normal to inspection, full ROM, capillary refill normal, no calf tenderness and no pedal edema Neuro: COMMON NORMALS: patient oriented x3 SENSORIUM/ORIENTATION: Yes alert MENINGEAL SIGNS: Yes no meningeal signs Skin: COMMON NORMALS: no rashes or lesions noted, no wounds, turgor normal, no jaundice, no petechiae and no mottling GENERAL SKIN EXAM: no rashes or lesions noted and turgor normal Course Reevaluation(s): Reevaluation #1: Discussed his labs with him. White cell count mildly elevated, liver enzymes normal. BUN and creatinine are both normal. Lipase only mildly elevated. He symptoms are compatible with mild pancreatitis. We will discharge him home oral narcotics, he already has oral antiemetics. He is advised to consume a clear liquid diet until his symptoms are improved at which point he can advance his diet. He voiced understanding and he is in agreement with the plan. Time: 18:34 Vital Signs: Vital signs: Vital Signs Temperature 98.1 F 07/29/19 14:15 Pulse Rate 81 07/29/19 19:23 Respiratory Rate 18 07/29/19 19:23 Blood Pressure 133/91 07/29/19 19:23 Pulse Oximetry 100 07/29/19 19:23 MDM - Abdominal Pain MDM Narrative: Medical decision making narrative: Patient who presents to the emergency department with epigastric abdominal pain. Evaluation shows he has a mildly elevated lipase, symptoms likely secondary to acute pancreatitis. CT scan done 3 days ago was unremarkable. He will be managed as a case of acute pancreatitis with bowel rest, pain control. He is discharged home with a prescription for hydrocodone/acetaminophen. He is to consume a clear liquid diet until his symptoms resolve at which time he can advance his diet. Medical Records: Attestation: I reviewed the patient's medical records. Lab Data: Attestation: I reviewed the patient's lab results. Labs: Lab Results 07/29/19 07/29/19 07/29/19 Range/Units 16:14 16:14 16:14 WBC 13.1 H (4.0-10.0) 10^3/ uL RBC 5.57 H (4.1-5.3) 10^6/u L Hgb 17.4 H (11.7-16.6) g/dL Hct 51.6 (42.0-52.0) % MCV 92.6 (80-94) fL MCH 31.2 (28.0-34.0) pg MCHC 33.7 (30.0-36.0) g/dL RDW 12.3 (12.1-15.1) % Plt Count 519 H (130-400) 10^3/c mm MPV 9.3 (7.4-10.4) fL Neut % (Auto) 72.2 % Lymph % (Auto) 19.9 % Kingfisher % (Auto) 5.4 % Eos % (Auto) 1.5 % Baso % (Auto) 0.6 % Neut # (Auto) 9.4 H (1.8-7.7) 10^3/u L Lymph # (Auto) 2.6 (0.8-4.8) 10^3/u L Kingfisher # (Auto) 0.7 (0.2-0.9) 10^3/u L Eos # (Auto) 0.2 (0.0-0.8) 10^3/u L Baso # (Auto) 0.1 (0.0-0.1) 10^3/u L Nucleated RBC % (a uto) 0 % Nucleated RBCs # 0.0 /100WBC Sodium 138 (136-145) mmol/L Potassium 4.6 (3.5-5.1) mmol/L Chloride 102 (98-107) mmol/L Carbon Dioxide 21 L (22-29) mmol/L Anion Gap 19.6 H (5-19) BUN 10 (6-20) mg/dL Creatinine 0.9 (0.7-1.2) mg/dL GFR Calculation 93.9 (90-130) mL/min Glucose 96 (65-115) mg/dL Calculated Osmolal ity 282 L (285-295) mOsm/k g Lactate 0.9 (0.5-2.2) mmol/L Calcium 9.8 (8.5-10.5) mg/dL Total Bilirubin 0.5 (0.15-1.2) mg/dL AST 19 (0-40) U/L ALT 33 (0-41) U/L Alkaline Phosphata se 106 (40-130) IU/L C-Reactive Protein 3.5 (0.0-4.9) mg/L Total Protein 7.4 (6.6-8.7) g/dL Albumin 5.0 (3.5-5.2) g/dL Globulin 2.4 (1.3-4.6) g/dL Lipase 67 H (13-60) U/L Ethyl Alcohol < 10 (0-10) mg/dL Discharge Plan Discharge Patient Disposition: Home, Self-Care Clinical Impression: Acute pancreatitis Qualifiers: Pancreatitis type: unspecified pancreatitis type Acute pancreatitis complication: no infection or necrosis Qualified Code(s): K85.90 - Acute pancreatitis without necrosis or infection, unspecified Condition: Stable Prescriptions: [place] 5-325 mg tablet 1 tab PO Q6H PRN (Reason: pancreatitis) Qty: 12 RF: 0 No Action No Known Home Medications RF: 0 Discharge Orders: Discharge Order (Routine); Ordered 07/29/19 Ordered By: Jen Weller Referrals: Cresencio Lucero FNP-C [Primary Care Provider] - 4-7 days Patient Instructions: Pancreatitis (ED) Activity Restrictions/Additional Instructions: Return for any new or worsening symptoms. Continue clear liquid diet until your symptoms improve, at that time you can start advancing on diet until you get your regular diet. Take the pain medication as needed, take the nausea medicine as needed. Follow-up with your primary care provider within 1 week. Discharge Date/Time: 07/29/19 19:26 Coding Level of Care Code ED [place] [employer] for Parminder Mccord
[2019-07-29 18:50] VITALS: RESP 18
[2019-07-29] MEDS: fentaNYL 50 mcg/mL INJ 2mL IVP (18:50)
[2019-07-29 19:23] VITALS: BP 133/91; PULSE 81; RESP 18; O2SAT 100
== END 2019-07-29 19:26 | disposition home or self-care (01) ==
PROVIDERS: Emergency Provider Family Medicine; PCP Nurse Practitioner
DX: K85.90 Acute pancreatitis without necrosis or infection, unspecified (principal); F17.210 Nicotine dependence, cigarettes, uncomplicated
CPT/HCPCS: 12345; 80053; 80307; 83605; 83690; 85025; 86140; 96374; 96375; 99282; 99283; J3010

== ENCOUNTER → 2019-09-28 12:12 | Outpatient (BNVA) | payer OTHER, SELFPAY | PROVIDERS: PCP Nurse Practitioner; Visit Provider Nurse Practitioner Family | DX: R10.9 Unspecified abdominal pain (principal) | CPT/HCPCS: 80053; 82150; 83690; 85025 ==

== ENCOUNTER 2021-03-22 23:39 | Emergency (ER) | payer SELFPAY ==
[2021-03-22 23:47] VITALS: BP 138/94; PULSE 109; RESP 18; TEMP 36.4; O2SAT 97; BMI 23.5
[2021-03-23 03:18] VITALS: BP 159/89; PULSE 99; RESP 20; TEMP 36.8; O2SAT 97
--- NOTE | 2021-03-23 03:21 | PC.NURSE ---
patient reports pain to right wrist, states metal blade cut him last week, it was sutured, tD up to date. states pain started again 2 days ago. no drainage noted. PMS intact.
--- NOTE | 2021-03-23 03:42 | CTR_ITS ---
PROCEDURE INFORMATION: Exam: CT Right Upper Extremity With Contrast, Forearm Exam date and time: 03/23/2021 3:42 AM Age: 41 years old Clinical indication: Right; Patient HX: Patient states had stitches removed from posterior wrist two days ago. Presents with focal swelling to posterior wrist on the ulnar side. C/O severe pain. ; Additional info: Septic extensor tenosysnovitis TECHNIQUE: Imaging protocol: CT of the Right upper extremity with intravenous contrast was performed. Exam focused on the forearm. Radiation optimization: All CT scans at this facility use at least one of these dose optimization techniques: automated exposure control; mA and/or kV adjustment per patient size (includes targeted exams where dose is matched to clinical indication); or iterative reconstruction. Contrast material: OMNI 300; Contrast volume: 95 ml; Contrast route: INTRAVENOUS (IV); COMPARISON: No relevant prior studies available. RADIATION DOSE METRICS: Total DLP (mGy-cm): 818.08 FINDINGS: Bones/joints: Normal. No acute fracture or dislocation. Soft tissues: There is a small peripherally enhancing subcutaneous fluid collection within the superficial soft tissues overlying the ulnar styloid measuring approximately 1.5 x 0.9 x 1.3 cm. This comes in close proximity to and likely contacts the extensor carpi ulnaris tendon sheath. CT/CT forearm RT w con [id number] IMPRESSION: Peripherally enhancing subcutaneous fluid collection is seen overlying the distal ulna measuring up to 1.5 cm, likely contacting the extensor carpi ulnaris tendon sheath. This may reflect a small abscess with associated septic tenosynovitis.
[2021-03-23 04:02] VITALS: RESP 18
[2021-03-23] MEDS: HYDROmorphone 1 mg/mL INJ 1 mL IVP ×3 (04:02→07:52)
[2021-03-23] MEDS: sodium chloride 0.9% 500 ML IV (04:02)
[2021-03-23] MEDS: ondansetron 2 mg/ML SDV 2 mL 4 MG IVP (04:03)
[2021-03-23 04:06] LABS: Basophils # 0.1 10^3/uL (0.0-0.1); Basophils % 0.5 %; Eosinophils # 0.2 10^3/uL (0.0-0.8); Eosinophils % 0.9 %; Hematocrit 46.1 % (42.0-52.0); Hemoglobin 15.4 g/dL (11.7-16.6); Lymphocytes # 3.4 10^3/uL (0.8-4.8); Lymphocytes % 18.7 %; Mean Corpuscular HGB Conc 33.4 g/dL (30.0-36.0); Mean Corpuscular Hemoglobin 31.6 pg (28.0-34.0); Mean Corpuscular Volume 94.7 fl (80-94); Mean Platelet Volume 9.2 fL (7.4-10.4); Monocytes # 1.2 10^3/uL (0.2-0.9); Monocytes % 6.5 %; Neutrophils # 13.28 10^3/uL (1.8-7.7); Nucleated Red Blood Cells % 0 %; Platelet Count 465 10^3/cmm (130-400); Red Blood Count 4.87 10^6/uL (4.1-5.3); Red Cell Distribution Width 12.4 % (12.1-15.1); White Blood Count 18.2 10^3/uL (4.0-10.0)
[2021-03-23 04:12] LABS: Erythrocyte Sedimentation Rate 3 mm/hr (0-10)
[2021-03-23] MEDS: iohexol 300 mg/mL 100 mL Btl IV (04:12)
[2021-03-23 04:34] LABS: Alanine Aminotransferase 20 U/L (0-41); Albumin Level 4.6 g/dL (3.5-5.2); Alkaline Phosphatase 85 IU/L (40-130); Anion Gap 16.5 (5-19); Aspartate Amino Transferase 17 U/L (0-40); Blood Urea Nitrogen 22 mg/dL (6-20); C Reactive Protein 0.7 mg/L (0.0-4.9); Calcium 9.5 mg/dL (8.5-10.5); Carbon Dioxide 28 mmol/L (22-29); Chloride 95 mmol/L (98-107); Globulin 2.1 g/dL (1.3-4.6); Glomerular Filtration Rate 82.3 mL/min (90-130); Glucose 101 mg/dL (65-115); Osmolality Calculated 283 mOsm/kg (285-295); Potassium 4.5 mmol/L (3.5-5.1); Sodium 135 mmol/L (136-145); Total Bilirubin 0.2 mg/dL (0.15-1.2); Total Protein 6.7 g/dL (6.6-8.7)
[2021-03-23 04:39] LABS: Procalcitonin 0.04 ng/mL (0-0.5)
[2021-03-23 05:39] VITALS: RESP 18
--- NOTE | 2021-03-23 06:20 | ED_ITS ---
HPI - Extremity Problem General: Chief complaint: Extremity Injury, Upper Stated complaint: R wrist injury fingers numb Time Seen by Provider: 03/23/21 03:32 Source: patient History of Present Illness: 41-year-old male who sustained a laceration a couple of weeks ago. It was sutured in [place]. He was told to remove the sutures himself at 7 to 10 days. He did so on day 8 he says. After this, the wound opened slightly, and swelled. It has become more painful over the past couple of days. No fever. He has extreme pain with any movement of the wrist. He has pain with movement of the fingers. Pain radiates to the elbow and a bit proximal. MD Complaint: extremity pain and extremity swelling Onset (ago): day(s) Pain Consistency: constant Location: right and upper extremity Quality: stabbing and aching Relieving factors: immobilization Exacerbating factors: range of motion Associated symptoms: Deny chest pain, fever(s), myalgias or short of breath Context: recent surgery/procedure Review of Systems Const: Denies: fever(s) or chills ENMT: Denies: throat pain Card: Denies: chest pain Resp: Denies: dyspnea or productive cough GI: Reports: nausea; Denies: abdominal pain or vomiting Skin/Breast: Reports: erythema PFSH ED PFSH: Medical History (Updated 03/23/21 @ 07:58 by Javi Franz DO) No pertinent past medical history Surgical History History of surgery on left wrist Family History Father CAD (coronary artery disease) Mother Rheumatoid arthritis Social History Smoking and tobacco status: current every day smoker cigarettes Packs smoked per day: 1 Years cigarettes smoked: 35 Second hand smoke exposure: No Alcohol intake: never Lives independently: Yes Household members: spouse Marital status: Current occupational status: employed 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 History of recent travel: Yes Details: 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 [place] and ID from [place] weekly Out of state: Yes Current gender identity: Male Physical Exam Const: GENERAL APPEARANCE: in distress NUTRITIONAL APPEARANCE: thin ORIENTATION/CONSCIOUSNESS: Yes awake, Yes oriented to person, Yes oriented to place and Yes oriented to time HENMT: COMMON NORMALS: normocephalic, atraumatic and Normal external nose present HEAD & SCALP: normocephalic and atraumatic FACE & SINUS: normal facial exam NOSE: Normal external nose present Eye: COMMON NORMALS: Equal, round and reactive pupils present and EOMs intact bilaterally PUPIL: Yes Equal, round and reactive pupils present Chest: COMMONS NORMALS: normal inspection of the chest Resp: COMMON NORMALS: normal respiratory effort, No use of accessory muscles and clear to auscultation bilaterally AUSCULTATION: clear to auscultation bilaterally Cardio: COMMON NORMALS: regular rate and regular rhythm RATE: regular rate RHYTHM: regular rhythm GI: COMMON NORMALS: Normal to inspection, nondistended, normoactive bowel sounds present Extremity: NARRATIVE EXTREMITY EXAM: Exam of the right upper extremity reveals a tender swollen mildly fluctuant area to the ulnar side of the dorsal wrist. There is mild redness. There is mild warmth. There is extreme tenderness to the area. There is tenderness at the dorsum of the forearm to the lateral epicondyle. There is pain with passive flexion of the wrist, and of the fourth MCP. There is not as much pain with passive flexion of the third and fifth. No drainage from the site. Neuro: SENSORIUM/ORIENTATION: Yes oriented to person, Yes oriented to place and Yes oriented to time Skin: NARRATIVE SKIN EXAM: see above. Course Consultations: Consultation #1: [email or web address] Vital Signs: Vital signs: Vital Signs Temperature 98.2 F 03/23/21 03:18 Pulse Rate 99 03/23/21 03:18 Respiratory Rate 17 03/23/21 07:52 Blood Pressure 159/89 03/23/21 03:18 Pulse Oximetry 97 03/23/21 03:18 MDM - Extremity (Nontraumatic) Medical Decision Making 41-year-old male with significant pain and swelling over a former laceration site at the distal dorsal ulnar side of the forearm/wrist he has significant pain with passive flexion of the MCP. His white blood cell count is 18. No left shift. Sed rate and CRP are normal though. Because of the amount of pain, and passive flexion pain, CT was ordered. The compartments are not tight in the forearm. There is no evidence of compartment syndrome. CT reveals an abscess/fluid collection in the area of question that abuts the ECU tendon. Likely the source of his radicular proximal pain. Given his presentation, I spoke with a hand surgeon. She notes that local incision and drainage would lik matty be sufficient given IV and then oral antibiotics are used. He can return if his condition worsens. This was performed without complication. The patient tolerated okay, and experienced some relief in pain afterwards. He will follow up with wound care. Case management has been consulted to make an appointment. He got vancomycin here, and will go on oral clindamycin. He was told to ice rel igiously for at least the next 48 hours. He is also splinted for comfort. Lab Data : 03/23/21 04:00 03/23/21 04:[address] 03/23/21 03:42 IMPRESSION: Peripherally enhancing subcutaneous fluid collection is seen overlying the distal ulna measuring up to 1.5 cm, likely contacting the extensor carpi ulnaris tendon sheath. This may reflect a small abscess with associated septic tenosynovitis. Laboratory Results WBC 18.2 10^3/uL (4.0-10.0) H 03/23/21 04:00 RBC 4.87 10^6/uL (4.1-5.3) 03/23/21 04:00 Hgb 15.4 g/dL (11.7-16.6) 03/23/21 04:00 Hct 46.1 % (42.0-52.0) 03/23/21 04:00 MCV 94.7 fl (80-94) H 03/23/21 04:00 MCH 31.6 pg (28.0-34.0) 03/23/21 04:00 MCHC 33.4 g/dL (30.0-36.0) 03/23/21 04:00 RDW 12.4 % (12.1-15.1) 03/23/21 04:00 Plt Count 465 10^3/cmm (130-400) H 03/23/21 04:00 MPV 9.2 fL (7.4-10.4) 03/23/21 04:00 Neut % (Auto) 73.0 % 03/23/21 04:00 Lymph % (Auto) 18.7 % 03/23/21 04:00 [place]christ % (Auto) 6.5 % 03/23/21 04:00 Eos % (Auto) 0.9 % 03/23/21 04:00 Baso % (Auto) 0.5 % 03/23/21 04:00 Neut # (Auto) 13.28 10^3/uL (1.8-7.7) H 03/23/21 04:00 Lymph # (Auto) 3.4 10^3/uL (0.8-4.8) 03/23/21 04:00 Gilchrist # (Auto) 1.2 10^3/uL (0.2-0.9) H 03/23/21 04:00 Eos # (Auto) 0.2 10^3/uL (0.0-0.8) 03/23/21 04:00 Baso # (Auto) 0.1 10^3/uL (0.0-0.1) 03/23/21 04:00 Nucleated RBC % (auto) 0 % 03/23/21 04:00 Nucleated RBCs # 0.0 /100WBC 03/23/21 04:00 ESR 3 mm/hr (0-10) 03/23/21 04:00 Sodium 135 mmol/L (136-145) L 03/23/21 04:00 Potassium 4.5 mmol/L (3.5-5.1) 03/23/21 04:00 Chloride 95 mmol/L (98-107) L 03/23/21 04:00 Carbon Dioxide 28 mmol/L (22-29) 03/23/21 04:00 Anion Gap 16.5 (5-19) 03/23/21 04:00 BUN 22 mg/dL (6-20) H 03/23/21 04:00 Creatinine 1.0 mg/dL (0.7-1.2) 03/23/21 04:00 GFR Calculation 82.3 mL/min (90-130) L 03/23/21 04:00 Glucose 101 mg/dL (65-115) 03/23/21 04:00 Calculated Osmolality 283 mOsm/kg (285-295) L 03/23/21 04:00 Calcium 9.5 mg/dL (8.5-10.5) 03/23/21 04:00 Total Bilirubin 0.2 mg/dL (0.15-1.2) 03/23/21 04:00 AST 17 U/L (0-40) 03/23/21 04:00 ALT 20 U/L (0-41) 03/23/21 04:00 Alkaline Phosphatase 85 IU/L (40-130) 03/23/21 04:00 C-Reactive Protein 0.7 mg/L (0.0-4.9) 03/23/21 04:00 Total Protein 6.7 g/dL (6.6-8.7) 03/23/21 04:00 Albumin 4.6 g/dL (3.5-5.2) 03/23/21 04:00 Globulin 2.1 g/dL (1.3-4.6) 03/23/21 04:00 Procalcitonin 0.04 ng/mL (0-0.5) 03/23/21 04:00 Discharge Plan Discharge Patient Disposition: Home Clinical Impression: Tendinitis, Abscess of wrist Condition: Stable Prescriptions: New hydrocodone-acetaminophen 7.5-325 mg tablet 1 tab PO Q6H PRN (Reason: pain) Qty: 12 0RF Continued clindamycin HCl 300 mg capsule 300 mg PO TID Qty: 30 0RF Discharge Orders: Discharge ED (Routine); Ordered 03/23/21 Ordered By: Javi Franz Referrals: Cresencio Lucero, LEARNING AND DEVELOPMENT ASSISTANT-C [Primary Care Provider] - WOUND CARE CLINIC, [Staff Physician] - 4-7 days Patient Instructions: Abscess (ED), Tendinitis (ED), Opioid Safety Activity Restrictions/Additional Instructions: A case management referral has been placed to obtain you a wound care clinic appointment to follow-up with your wound. Stay in your splint until seen by them next week. You may attempt dressing changes up to twice daily. Take your antibiotics as directed. Pain medicine as needed. Ice for pain and swelling over your splint. Return for worsening pain or swelling despite treatment. This includes continued or worsening extreme pain with movement of the fingers. Coding Level of Care Code ED Boarding House Cook for Ling Fwd Exam Detailed
[2021-03-23 07:52] VITALS: RESP 17
[2021-03-23] MEDS: vancomycin 1,250 MG/250 ML PIGGYBACK 250 MG IV (08:58)
--- NOTE | 2021-03-25 11:28 | DCPLANNER ---
resident care manager had message to schedule a follow up appointment for patient with Wound Care. resident care manager called the Wound Care clinic, spoke with Marli, gave clinic patients information. A followup appointment was scheduled for March at 8:[address] Guadalupe. resident care manager called phone number [phone], medical case worker was unable to speak with patient. resident care manager called patient, and when patient answered the phone he said, Don't you guys listen, leave me the falone. Then patient hung up on medical case worker. resident care manager called Wound Care back and cancelled the appointment.
== END 2021-03-23 10:29 | disposition home or self-care (01) ==
PROVIDERS: Emergency Provider Emergency Medicine; PCP Nurse Practitioner
DX: L02.413 Cutaneous abscess of right upper limb (principal); M77.8 Other enthesopathies, not elsewhere classified; F17.210 Nicotine dependence, cigarettes, uncomplicated
CPT/HCPCS: 73201; 80053; 84145; 85025; 85651; 86140; 87040; 96365; 96375; 96376; 99284; J1170; J2405; J3370; J7040; Q9967

== ENCOUNTER 2021-07-24 02:46 | Emergency (ER) | payer SELFPAY ==
--- NOTE | 2021-07-24 02:47 | ECG_ITS ---
[facility] Test Date: 2021-07-24 Pat Name: Kiet Hicks Department: Room: Gender: Male Or Rn: : 1980 Requested By: Sylvia Mclaughlin Order Number: [id number] Javed MD: Beena Beltre M.D. Measurements Intervals [place] Rate: 74 P: 62 VA: 139 QRS: 99 QRSD: 81 T: 65 QT: 364 QTc: 404 Interpretive Statements SINUS RHYTHM BORDERLINE RIGHT AXIS DEVIATION [QRS AXIS > 90] Compared to ECG 07/22/2016 12:02:32 Sinus arrhythmia no longer present Electronically Signed On 07-24-2021 19:41:40 CDT by Beena Beltre M.D. [id number]
--- NOTE | 2021-07-24 02:47 | XRR_ITS ---
PROCEDURE INFORMATION: Exam: XR Chest Exam date and time: 07/24/2021 2:58 AM Age: 41 years old Clinical indication: Patient HX: C/O chest pain radiating to left side of neck. ; Additional info: Cp TECHNIQUE: Imaging protocol: XR of the chest. Views: 1 view. COMPARISON: CR Chest 1 [place] [id number] 07/22/2016 12:24 PM FINDINGS: Tubes, catheters and devices: EKG monitoring leads overlie the thoracic wall. Lungs: There is no evidence of focal pulmonary consolidation. Pleural spaces: No pleural effusion or pneumothorax. Heart/Mediastinum: Normal in size. Bones/joints: No acute fracture is identified. XR/XR chest 1V portable [id number] IMPRESSION: No acute findings.
--- NOTE | 2021-07-24 02:52 | ED_ITS ---
HPI - Chest Pain General: Chief Complaint: Chest Pain Stated Complaint: CP Time Seen by Provider: 07/24/21 02:49 Source: patient Mode of arrival: ambulatory Limitations: no limitations History of Present Illness: 41-year-old male states that starting at 10 PM he is having chest pain as a sharp pain in the left side of his chest radiates to his neck. Patient states that his pain is since improved his pain is currently only a 1 out of 10 he denies any nausea or shortness of breath with the pain or diaphoresis. He is a longtime smoker has a family history of heart disease he has no heart disease himself. Denies any worsening proving factors. Associated symptoms: Deny abdominal pain, dyspnea, fever(s), nausea or vomiting Review of Systems Const: Denies: fever(s), chills, body aches or change in appetite Eyes: Denies: blurry vision or eye discomfort ENMT: Denies: throat pain or dental pain Card: Reports: chest pain Resp: Denies: dyspnea GI: Denies: abdominal pain, nausea, vomiting or diarrhea : Denies: dysuria Musc: Denies: neck pain or back pain Skin/Breast: Denies: rash Neuro: Denies: headache(s) Psych: Denies: depression Jorge/Lymph: Denies: easy bruising All/Imm: Denies: urticaria PFSH ED PFSH: Medical History (Updated 07/24/21 @ 05:27 by Sylvia Mclaughlin MD) No pertinent past medical history Surgical History History of surgery on left wrist Family History Father CAD (coronary artery disease) Mother Rheumatoid arthritis Social History Smoking and tobacco status: current every day smoker cigarettes Packs smoked per day: 1 Years cigarettes smoked: 35 Second hand smoke exposure: No Alcohol intake: never Lives independently: Yes Household members: spouse Marital status: Current occupational status: employed 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 History of recent travel: Yes Details: 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 [place] and ID from [place] weekly Out of state: Yes Current gender identity: Male Physical Exam Const: COMMON NORMALS: no acute distress, patient oriented x3 and healthy appearing HENMT: COMMON NORMALS: normocephalic and atraumatic HEAD & SCALP: no rmocephalic and atraumatic Eye: COMMON NORMALS: Equal, round and reactive pupils present and EOMs intact bilaterally PUPIL: Yes Equal, round and reactive pupils present Neck/C-Spine: COMMON NORMALS: full ROM and supple Chest: COMMONS NORMALS: normal inspection of the chest and normal palpation of entire chest wall Resp: COMMON NORMALS: normal respiratory effort, No retractions, No use of accessory muscles and clear to auscultation bilaterally AUSCULTATION: clear to auscultation bilaterally Cardio: COMMON NORMALS: regular rate, regular rhythm and No murmurs present (Cardio) RATE: regular rate RHYTHM: regular rhythm GI: COMMON NORMALS: Normal to inspection, nondistended, normoactive bowel sounds present, Soft to palpation, non-tender and no masses PALPATION: Yes Soft to palpation Extremity: COMMON NORMALS: normal to inspection and full ROM Neuro: COMMON NORMALS: patient oriented x3, moves all extremities and no focal motor deficits Psych: COMMON NORMALS: mental status grossly normal, Normal thought process present and cooperative THOUGHT PROCESS: Normal thought process present Skin: COMMON NORMALS: no rashes or lesions noted and no wounds GENERAL SKIN EXAM: no rashes or lesions noted Course Vital Signs: Vital signs: Vital Signs Temperature 97.9 F 07/24/21 02:53 Pulse Rate 83 07/24/21 02:53 Respiratory Rate 12 07/24/21 02:53 Blood Pressure 136/85 07/24/21 02:53 Pulse Oximetry 97 07/24/21 02:53 MDM - Chest Pain Medical Decision Making Patient presents with chest pain that is atypical in nature patient's repeat troponin here is normal EKGs here are normal. His pain is resolved. He has no signs of aortic dissection or pulmonary embolism. He has no signs of acute coronary syndrome. Patient is requesting discharge I feel he is stable for discharge at this time we will get him follow-up PCP and return if worsening. Lab Data : 07/24/21 02:50 07/24/21 02:50 Radiology Impressions Chest X-Ray 07/24/21 02:47 IMPRESSION: No acute findings. Laboratory Results WBC 11.2 10^3/uL (4.0-10.0) H 07/24/21 02:50 RBC 5.19 10^6/uL (4.1-5.3) 07/24/21 02:50 Hgb 16.3 g/dL (11.7-16.6) 07/24/21 02:50 Hct 47.9 % (42.0-52.0) 07/24/21 02:50 MCV 92.3 fl (80-94) 07/24/21 02:50 MCH 31.4 pg (28.0-34.0) 07/24/21 02:50 MCHC 34.0 g/dL (30.0-36.0) 07/24/21 02:50 RDW 12.8 % (12.1-15.1) 07/24/21 02:50 Plt Count 456 10^3/cmm (130-400) H 07/24/21 02:50 MPV 9.8 fL (7.4-10.4) 07/24/21 02:50 Neut % (Auto) 49.2 % 07/24/21 02:50 Lymph % (Auto) 40.8 % 07/24/21 02:50 [place] % (Auto) 6.8 % 07/24/21 02:50 Eos % (Auto) 2.2 % 07/24/21 02:50 Baso % (Auto) 0.8 % 07/24/21 02:50 Neut # (Auto) 5.53 10^3/uL (1.8-7.7) 07/24/21 02:50 Lymph # (Auto) 4.6 10^3/uL (0.8-4.8) 07/24/21 02:50 [place] # (Auto) 0.8 10^3/uL (0.2-0.9) 07/24/21 02:50 Eos # (Auto) 0.3 10^3/uL (0.0-0.8) 07/24/21 02:50 Baso # (Auto) 0.1 10^3/uL (0.0-0.1) 07/24/21 02:50 Nucleated RBC % (auto) 0 % 07/24/21 02:50 Nucleated RBCs # 0.0 /100WBC 07/24/21 02:50 Sodium 135 mmol/L (136-145) L 07/24/21 02:50 Potassium 4.5 mmol/L (3.5-5.1) 07/24/21 02:50 Chloride 98 mmol/L (98-107) 07/24/21 02:50 Carbon Dioxide 22 mmol/L (22-29) 07/24/21 02:50 Anion Gap 19.5 (5-19) H 07/24/21 02:50 BUN 21 mg/dL (6-20) H 07/24/21 02:50 Creatinine 0.9 mg/dL (0.7-1.2) 07/24/21 02:50 GFR Calculation 93.0 mL/min (90-130) 07/24/21 02:50 Glucose 115 mg/dL (65-115) 07/24/21 02:50 Calculated Osmolality 284 mOsm/kg (285-295) L 07/24/21 02:50 Calcium 9.6 mg/dL (8.5-10.5) 07/24/21 02:50 Total Bilirubin 0.3 mg/dL (0.15-1.2) 07/24/21 02:50 AST 23 U/L (0-40) 07/24/21 02:50 ALT 22 U/L (0-41) 07/24/21 02:50 Alkaline Phosphatase 95 IU/L (40-130) 07/24/21 02:50 Troponin T Baseline 43 ng/L (0-15) H 07/24/21 02:50 Troponin T 120 Minute 41.78 ng/L (0-15) H 07/24/21 04:38 Delta Troponin T -1.22 ABS# (0-10) L 07/24/21 04:38 Total Protein 7.0 g/dL (6.6-8.7) 07/24/21 02:50 Albumin 4.2 g/dL (3.5-5.2) 07/24/21 02:50 Globulin 2.8 g/dL (1.3-4.6) 07/24/21 02:50 EKG Data EKG 1: I personally reviewed and interpreted this EKG as follows: EKG interpretation date: 07/24/21 EKG interpretation time: 02:53 Interpretation: nsr hr [address] or t wave abnormalities qrs 81 qtc 391 EKG 2: I personally reviewed and interpreted this EKG as follows: EKG interpretation date: 07/24/21 EKG interpretation time: 04:48 Interpretation: nsr hr [address] or t wave abnormalities qrs 86 qtc 400 Discharge Plan Discharge Patient Disposition: Home Clinical Impression: Chest pain Condition: Stable Prescriptions: No Action clindamycin HCl 300 mg capsule 300 mg PO TID Qty: 30 0RF hydrocodone-acetaminophen 7.5-325 mg tablet 1 tab PO Q6H PRN (Reason: pain) Qty: 12 0RF Discharge Orders: Discharge ED (Routine); Ordered 07/24/21 Ordered By: Sylvia Mclaughlin Referrals: Beena Beltre MD [Physician] - 1-3 days Cresencio Lucero, PRINT SUPPORT SPECIALIST-C [Primary Care Provider] - Discharge Diet: Advance as tolerated Discharge Activity: Resume usual activity Patient Instructions: Chest Pain (ED) Coding Level of Care Code ED Coal Deliverer for Chg Fwd Exam Comprehensive
[2021-07-24 02:53] VITALS: BP 136/85; PULSE 83; RESP 12; TEMP 36.6; O2SAT 97; BMI 24.3
[2021-07-24 03:00] LABS: Basophils # 0.1 10^3/uL (0.0-0.1); Basophils % 0.8 %; Eosinophils # 0.3 10^3/uL (0.0-0.8); Eosinophils % 2.2 %; Hematocrit 47.9 % (42.0-52.0); Hemoglobin 16.3 g/dL (11.7-16.6); Lymphocytes # 4.6 10^3/uL (0.8-4.8); Lymphocytes % 40.8 %; Mean Corpuscular Hemoglobin 31.4 pg (28.0-34.0); Mean Corpuscular Volume 92.3 fl (80-94); Mean Platelet Volume 9.8 fL (7.4-10.4); Monocytes # 0.8 10^3/uL (0.2-0.9); Monocytes % 6.8 %; Neutrophils # 5.53 10^3/uL (1.8-7.7); Neutrophils % 49.2 %; Nucleated Red Blood Cells % 0 %; Platelet Count 456 10^3/cmm (130-400); Red Blood Count 5.19 10^6/uL (4.1-5.3); Red Cell Distribution Width 12.8 % (12.1-15.1); White Blood Count 11.2 10^3/uL (4.0-10.0)
[2021-07-24] MEDS: aspirin 81 mg Chew Tablet 324 MG PO (03:02)
[2021-07-24] MEDS: ondansetron 2 mg/ML SDV 2 mL 4 MG IVP (03:03)
[2021-07-24] MEDS: morphine 4 mg/mL SDV 1 mL IVP (03:04)
[2021-07-24 03:22] LABS: Albumin Level 4.2 g/dL (3.5-5.2); Alkaline Phosphatase 95 IU/L (40-130); Blood Urea Nitrogen 21 mg/dL (6-20); Calcium 9.6 mg/dL (8.5-10.5); Carbon Dioxide 22 mmol/L (22-29); Chloride 98 mmol/L (98-107); Globulin 2.8 g/dL (1.3-4.6); Glucose 115 mg/dL (65-115); Osmolality Calculated 284 mOsm/kg (285-295); Sodium 135 mmol/L (136-145); Total Bilirubin 0.3 mg/dL (0.15-1.2)
[2021-07-24 03:23] LABS: Troponin(5th) Baseline 43 ng/L (0-15)
[2021-07-24 03:33] LABS: Alanine Aminotransferase 22 U/L (0-41); Anion Gap 19.5 (5-19); Aspartate Amino Transferase 23 U/L (0-40); Potassium 4.5 mmol/L (3.5-5.1)
--- NOTE | 2021-07-24 04:47 | ECG_ITS ---
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 Measurements Intervals [place] Rate: 60 P: 16 [place]: 161 QRS: 98 QRSD: 86 T: 70 QT: 399 QTc: 400 Interpretive Statements SINUS RHYTHM BORDERLINE RIGHT AXIS DEVIATION [QRS AXIS > 90] Compared to ECG 07/24/2021 02:53:55 No significant changes Electronically Signed On 07-24-2021 19:47:58 CDT by Beena Beltre M.D. [id number]
[2021-07-24 05:00] VITALS: BP 100/71; PULSE 66; RESP 16; O2SAT 96
[2021-07-24 05:03] LABS: Troponin 5 2HR 41.78 ng/L (0-15)
[2021-07-24 05:12] LABS: Troponin 5 2HR Delta -1.22 ABS# (0-10)
[2021-07-24 05:15] VITALS: BP 125/86; PULSE 65; RESP 17; O2SAT 97
[2021-07-24 05:37] VITALS: BP 114/72; PULSE 62; RESP 14; O2SAT 96
--- NOTE | 2021-07-24 16:07 | DCPLANNER ---
Addendum entered by Debbie Barrett 10/16/21 12:14: Patient had a follow up appointment scheduled for 09.19.21 with heart care - patient did not attend appointment. Addendum entered by Debbie Barrett 08/02/21 07:13: Patient has a follow up appointment scheduled for August at 3:[address] Beltre at [facility]. Clinic will call patient with appointment information. Original Note: manager talent acquisition had message to schedule a followup appointment for patient with cardiology. manager talent acquisition sent patients information to the front [facility]. Patients information will be printed and reviewed. Clinic will call patient with appointment information.
== END 2021-07-24 05:34 | disposition home or self-care (01) ==
PROVIDERS: Emergency Provider Emergency Medicine; PCP Nurse Practitioner
DX: R07.9 Chest pain, unspecified (principal)
CPT/HCPCS: 71045; 80053; 84484; 85025; 93005; 96374; 96375; 99285; J2270; J2405

== ENCOUNTER 2021-10-15 14:54 | Emergency (ER) | payer SELFPAY ==
--- NOTE | 2021-10-15 14:55 | XRR_ITS ---
PROCEDURE INFORMATION: Exam: XR Chest Exam date and time: 10/15/2021 3:19 PM Age: 41 years old Clinical indication: Pain; Angina pectoris; Additional info: Chest pain TECHNIQUE: Imaging protocol: Radiologic exam of the chest. Views: 1 view. COMPARISON: CR XR chest 1V portable [id number] 07/24/2021 2:58 AM FINDINGS: Lungs: Unremarkable. No consolidation. Pleural spaces: Unremarkable. No pleural effusion. No pneumothorax. Heart/Mediastinum: Unremarkable. No cardiomegaly. Bones/joints: Unremarkable. XR/XR chest 1V portable [id number] IMPRESSION: No acute findings.
--- NOTE | 2021-10-15 14:56 | ECG_ITS ---
[facility] Test Date: 2021-10-15 Pat Name: Kiet Hicks Department: Room: Gender: Male Counterperson: : 1980 Requested By: Chuy Mace Order Number: [id number] Javed MD: Judah Vee M.D. Measurements Intervals [place] Rate: 60 P: 74 [place]: 164 QRS: 81 QRSD: 82 T: 74 QT: 418 QTc: 419 Interpretive Statements SINUS RHYTHM POSSIBLE LEFT ATRIAL ENLARGEMENT [-0.1mV P-WAVE IN V1/V2] Compared to ECG 07/24/2021 04:48:39 No significant changes Electronically Signed On 10-15-2021 17:49:42 CDT by Judah Vee M.D. [id number]
[2021-10-15 15:08] VITALS: BP 113/86; PULSE 64; RESP 18; TEMP 36.6; O2SAT 100; BMI 24.4
[2021-10-15 15:21] LABS: Basophils # 0.1 10^3/uL (0.0-0.1); Basophils % 0.7 %; Eosinophils # 0.2 10^3/uL (0.0-0.8); Eosinophils % 1.5 %; Hematocrit 44.7 % (42.0-52.0); Hemoglobin 14.9 g/dL (11.7-16.6); Lymphocytes # 3.3 10^3/uL (0.8-4.8); Lymphocytes % 32.6 %; Mean Corpuscular HGB Conc 33.3 g/dL (30.0-36.0); Mean Corpuscular Hemoglobin 31.5 pg (28.0-34.0); Mean Corpuscular Volume 94.5 fl (80-94); Mean Platelet Volume 10.1 fL (7.4-10.4); Monocytes # 0.6 10^3/uL (0.2-0.9); Monocytes % 5.8 %; Neutrophils # 6.02 10^3/uL (1.8-7.7); Neutrophils % 59.2 %; Nucleated Red Blood Cells % 0 %; Platelet Count 425 10^3/cmm (130-400); Red Blood Count 4.73 10^6/uL (4.1-5.3); Red Cell Distribution Width 12.6 % (12.1-15.1); White Blood Count 10.2 10^3/uL (4.0-10.0)
--- NOTE | 2021-10-15 15:21 | W.ED.CHESTPA ---
HPI - Chest Pain General: Chief Complaint: Chest Pain Stated Complaint: CHEST PAIN Time Seen by Provider: 10/15/21 14:55 History of Present Illness: 41-year-old male presenting today with chest pain. Patient notes he awoke from sleep with chest pain. Notes it was left-sided chest pain. Pain was nonradiating. Was present for several hours. Resolved after being given aspirin and nitro in route. He notes a prior history of stress-induced heart attack. But never underwent any stenting. Not on medications for this. He denies fevers or chills. Denies nausea or vomiting. He denies dysuria or polyuria. He denies pain or swelling in his lower extremities. Denies history of blood clots. He denies recent travel recent surgeries. He notes that he has been under a significant amount of stress secondary to losing his job. As well as having a court date tomorrow. Review of Systems General: Reports: 10 or more systems reviewed and unremarkable except in HPI and below PFS ED PFSH: Medical History (Updated 10/15/21 @ 16:08 by Chuy Mace DO) No pertinent past medical history Surgical History History of surgery on left wrist Family History Father CAD (coronary artery disease) Mother Rheumatoid arthritis Social History Smoking and tobacco status: current every day smoker cigarettes Packs smoked per day: 1 Years cigarettes smoked: 35 Second hand smoke exposure: No Alcohol intake: never Lives independently: Yes Household members: spouse Marital status: Current occupational status: employed 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 History of recent travel: Yes Details: 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 Out of state: Yes Current gender identity: Male Physical Exam Const: COMMON NORMALS: no acute distress, patient oriented x3 and alert GENERAL APPEARANCE: cooperative ORIENTATION/CONSCIOUSNESS: Yes awake, Yes oriented to person, Yes oriented to place and Yes oriented to time HENMT: COMMON NORMALS: normocephalic, atraumatic, external ears normal, Normal external nose present and moist oral mucous membranes HEAD & SCALP: normal to inspection, normocephalic and atraumatic NOSE: Normal external nose present GENERAL EAR: hearing grossly impaired EXTERNAL EAR: Yes external ears normal Eye: COMMON NORMALS: Equal, round and reactive pupils present, EOMs intact bilaterally, conjunctivae normal and no scleral icterus GENERAL EYE: appearance normal, both eyes and all related structures EYELID: eyelids normal CONJUNCTIVA: Yes conjunctivae normal SCLERA: sclerae normal PUPIL: Yes Equal, round and reactive pupils present Neck/C-Spine: COMMON NORMALS: full ROM, supple and no JVD GENERAL: Yes normal visual inspection Lymph: LYMPHATIC: no lymphadenopathy noted and no lymphedema noted Chest: COMMONS NORMALS: normal inspection of the chest Resp: COMMON NORMALS: normal respiratory effort, No retractions and No use of accessory muscles Cardio: COMMON NORMALS: no JVD, regular rate and regular rhythm RATE: regular rate RHYTHM: regular rhythm GI: COMMON NORMALS: Normal to inspection, nondistended, normoactive bowel sounds present : COMMON NORMALS: Yes no CVA tenderness BLADDER/KIDNEY EXAM: Yes no CVA tenderness Back/Pelvis: COMMON NORMALS: no CVA tenderness and thoracic and lumbar spine normal to inspection Extremity: COMMON NORMALS: normal to inspection, full ROM and capillary refill normal GENERAL: Yes normal exam except as noted Neuro: COMMON NORMALS: patient oriented x3, CN's II-XII intact bilaterally, moves all extremities, no focal motor deficits, no sensory deficits noted and gait normal SENSORIUM/ORIENTATION: Yes alert, Yes oriented to person, Yes oriented to place and Yes oriented to time Psych: COMMON NORMALS: mental status grossly normal, Normal thought process present, cooperative and normal affect THOUGHT PROCESS: Normal thought process present Skin: COMMON NORMALS: no rashes or lesions noted and no wounds GENERAL SKIN EXAM: no rashes or lesions noted Course Vital Signs: Vital signs: Vital Signs Temperature 97.9 F 10/15/21 15:08 Pulse Rate 64 10/15/21 15:08 Respiratory Rate 18 10/15/21 15:08 Blood Pressure 113/86 10/15/21 15:08 Pulse Oximetry 100 10/15/21 15:08 Oxygen Delivery Me thod 10/15/21 15:08 MDM - Chest Pain Medical Decision Making 41-year-old male presenting today with chest pain. EKG is unremarkable. Vitals are within normal limits. CBC, CMP, troponin are within normal range. Do not suspect a cardiac etiology of patient's pain. Chest x-ray is also unremarkable. Patient was given strict return precautions and recommended routine outpatient follow-up. Lab Data : 10/15/21 15:15 10/15/21 15:15 Radiology Impressions Chest X-Ray 10/15/21 14:55 IMPRESSION: No acute findings. Laboratory Results WBC 10.2 10^3/uL (4.0-10.0) H 10/15/21 15:15 RBC 4.73 10^6/uL (4.1-5.3) 10/15/21 15:15 Hgb 14.9 g/dL (11.7-16.6) 10/15/21 15:15 Hct 44.7 % (42.0-52.0) 10/15/21 15:15 MCV 94.5 fl (80-94) H 10/15/21 15:15 MCH 31.5 pg (28.0-34.0) 10/15/21 15:15 MCHC 33.3 g/dL (30.0-36.0) 10/15/21 15:15 RDW 12.6 % (12.1-15.1) 10/15/21 15:15 Plt Count 425 10^3/cmm (130-400) H 10/15/21 15:15 MPV 10.1 fL (7.4-10.4) 10/15/21 15:15 Neut % (Auto) 59.2 % 10/15/21 15:15 Lymph % (Auto) 32.6 % 10/15/21 15:15 [place] % (Auto) 5.8 % 10/15/21 15:15 Eos % (Auto) 1.5 % 10/15/21 15:15 Baso % (Auto) 0.7 % 10/15/21 15:15 Neut # (Auto) 6.02 10^3/uL (1.8-7.7) 10/15/21 15:15 Lymph # (Auto) 3.3 10^3/uL (0.8-4.8) 10/15/21 15:15 [place] # (Auto) 0.6 10^3/uL (0.2-0.9) 10/15/21 15:15 Eos # (Auto) 0.2 10^3/uL (0.0-0.8) 10/15/21 15:15 Baso # (Auto) 0.1 10^3/uL (0.0-0.1) 10/15/21 15:15 Nucleated RBC % (auto) 0 % 10/15/21 15:15 Nucleated RBCs # 0.0 /100WBC 10/15/21 15:15 Sodium 138 mmol/L (136-145) 10/15/21 15:15 Chloride 103 mmol/L (98-107) 10/15/21 15:15 Carbon Dioxide 22 mmol/L (22-29) 10/15/21 15:15 BUN 11 mg/dL (6-20) 10/15/21 15:15 Creatinine 0.7 mg/dL (0.7-1.2) 10/15/21 15:15 GFR Calculation 124.3 mL/min (90-130) 10/15/21 15:15 Glucose 85 mg/dL (65-115) 10/15/21 15:15 Calculated Osmolality 285 mOsm/kg (285-295) 10/15/21 15:15 Calcium 9.5 mg/dL (8.5-10.5) 10/15/21 15:15 Total Bilirubin 0.3 mg/dL (0.15-1.2) 10/15/21 15:15 AST 21 U/L (0-40) 10/15/21 15:15 ALT 17 U/L (0-41) 10/15/21 15:15 Alkaline Phosphatase 85 U/L (40-130) 10/15/21 15:15 Troponin T Baseline 10 ng/L (0-15) 10/15/21 15:15 Total Protein 6.7 g/dL (6.6-8.7) 10/15/21 15:15 Albumin 4.4 g/dL (3.5-5.2) 10/15/21 15:15 Globulin 2.3 g/dL (1.3-4.6) 10/15/21 15:15 EKG Data EKG 1: Interpretation: EKG without evidence of significant ST wave changes. Normal sinus rhythm at 57 bpm, VT 161 ms QRS duration 84 ms. When compared to prior EKG no significant changes are noted. Discharge Plan Discharge Patient Disposition: Home Clinical Impression: Chest pain Condition: Stable Prescriptions: No Action No Known Home Medications Discharge Orders: Discharge ED (Routine); Ordered 10/15/21 Ordered By: Chuy Mace Referrals: Cresencio Lucero, ASSEMBLY AND PACKING SUPERVISOR-C [Primary Care Provider] - Discharge Diet: Advance as tolerated Discharge Activity: Resume usual activity Patient Instructions: Chest Pain (ED) Coding Level of Care Code ED Human Services Instructor for Chg Fwd Exam Comprehensive
--- NOTE | 2021-10-15 15:26 | PC.PHAR ---
pt states he takes no rx or otc medications
[2021-10-15 15:45] LABS: Troponin(5th) Baseline 10 ng/L (0-15)
[2021-10-15 15:47] LABS: Alanine Aminotransferase 17 U/L (0-41); Albumin Level 4.4 g/dL (3.5-5.2); Alkaline Phosphatase 85 U/L (40-130); Aspartate Amino Transferase 21 U/L (0-40); Blood Urea Nitrogen 11 mg/dL (6-20); Calcium 9.5 mg/dL (8.5-10.5); Carbon Dioxide 22 mmol/L (22-29); Chloride 103 mmol/L (98-107); Globulin 2.3 g/dL (1.3-4.6); Glomerular Filtration Rate 124.3 mL/min (90-130); Glucose 85 mg/dL (65-115); Osmolality Calculated 285 mOsm/kg (285-295); Sodium 138 mmol/L (136-145); Total Bilirubin 0.3 mg/dL (0.15-1.2); Total Protein 6.7 g/dL (6.6-8.7)
--- NOTE | 2021-10-15 15:51 | ECG_ITS ---
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 Measurements Intervals [place] Rate: 57 P: 11 [place]: 161 QRS: 81 QRSD: 84 T: 73 QT: 424 QTc: 414 Interpretive Statements SINUS BRADYCARDIA Compared to ECG 07/24/2021 04:48:39 Sinus rhythm no longer present Electronically Signed On 10-15-2021 17:51:32 CDT by Judah Vee M.D. [email or web address]/store/[id number]
[2021-10-15 16:26] VITALS: BP 107/64; PULSE 64; RESP 12; RESP 15; O2SAT 98
[2021-10-15 16:27] LABS: Anion Gap 17.4 (5-19); Potassium 4.4 mmol/L (3.5-5.1)
== END 2021-10-15 16:28 | disposition home or self-care (01) ==
PROVIDERS: Emergency Provider Emergency Medicine; PCP Nurse Practitioner
DX: R07.9 Chest pain, unspecified (principal); F17.210 Nicotine dependence, cigarettes, uncomplicated
CPT/HCPCS: 71045; 80053; 84484; 85025; 93005; 99285

== ENCOUNTER 2022-04-11 17:13 | Emergency (ER) | payer SELFPAY ==
[2022-04-11 17:18] VITALS: PULSE 95; RESP 16; TEMP 36.5; O2SAT 98; BMI 22.9
--- NOTE | 2022-04-11 17:29 | W.ED.EXTPRO ---
HPI - Extremity Problem General: Chief complaint: Extremity Injury, Lower Stated complaint: FALL/ R WRIST & ANKLE FX Time Seen by Provider: 04/11/22 17:29 History of Present Illness: 42-year-old male patient comes in today with complaints of injury to the right ankle. Patient reports he was walking down the steps when he turned around to say something to his mother when his ankle twisted. Patient has pain and discomfort to the right ankle with difficulty bearing weight. Patient came in by EMS with a pillow splint in place to the right ankle. Patient has some swelling to the dorsal right hand. Patient has good range of motion of the hand. Patient appears nontoxic. Patient denies any chronic medical problems. Associated symptoms: Deny chest pain or fever(s) Review of Systems Const: Denies: fever(s) ENMT: Denies: throat pain Card: Denies: chest pain Resp: Denies: dyspnea GI: Denies: vomiting Musc: Reports: extremity pain (Right ankle and lower leg, swelling right hand); Denies: neck pain or back pain Skin/Breast: Reports: new lesions (Superficial abrasion right hand) Neuro: Denies: headache(s) PFS ED PFSH: Medical History (Updated 04/11/22 @ 18:50 by ALVAREZ Barraza) No pertinent past medical history Surgical History History of surgery on left wrist Family History Father CAD (coronary artery disease) Mother Rheumatoid arthritis Social History Smoking and tobacco status: current every day smoker cigarettes Packs smoked per day: 1 Years cigarettes smoked: 35 Second hand smoke exposure: No Alcohol intake: never Lives independently: Yes Household members: spouse Marital status: Current occupational status: employed 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 Current gender identity: Male Physical Exam Const: COMMON NORMALS: patient oriented x3 and alert HENMT: COMMON NORMALS: normocephalic HEAD & SCALP: normocephalic MOUTH: Normal oral and palatal mucosa present Neck/C-Spine: CERVICAL SPINE: Yes cervical ROM normal and No Cervical spine tenderness Chest: CHEST: No tenderness Resp: COMMON NORMALS: normal respiratory effort and clear to auscultation bilaterally AUSCULTATION: clear to auscultation bilaterally Cardio: COMMON NORMALS: regular rate and regular rhythm RATE: regular rate RHYTHM: regular rhythm GI: COMMON NORMALS: non-tender Back/Pelvis: THORACIC SPINE/UPPER BACK: No thoracic spinal tenderness LUMBAR SPINE/LOWER BACK: No lumbar spinal tenderness Extremity: RIGHT UPPER EXTREMITY: Yes hand & digits (Dorsal swelling with a superficial abrasion to the third knuckle) RIGHT LOWER EXTREMITY: Yes foot & digits (Good pulses, pillow splint in place on initial evaluation.) Neuro: COMMON NORMALS: patient oriented x3 SENSORIUM/ORIENTATION: Yes alert Skin: TRAUMA: abrasion (Superficial right hand) Course Vital Signs: Vital signs: Vital Signs Temperature 98.1 F 04/11/22 17:53 Pulse Rate 76 04/11/22 17:53 Respiratory Rate 18 04/11/22 17:53 Blood Pressure 138/83 04/11/22 17:53 Pulse Oximetry 96 04/11/22 17:53 Oxygen Delivery Me thod 04/11/22 17:53 MDM - Extremity (Nontraumatic) Medical Decision Making 42-year-old male patient comes in today for injuries sustained during a fall down 3 steps. On exam patient has some swelling and a superficial abrasion to the right hand. Patient also has some pain and mild swelling noted to the right lateral ankle which is splinted by a pillow splint. Pulses are intact. Vital signs are normal. Differential diagnosis includes fracture of the ankle/tib-fib, contusion to the hand, dislocation of the ankle. X-rays of the hand, tib-fib, and ankle noted no acute fractures. Patient was recommended to use an elastic bandage and crutches until he can bear weight comfortably. Recommend follow-up with primary care in 1 week for recheck. Return to ED for new concerns. Lab Data Radiology Impressions Ankle X-Ray 04/11/22 17:34 IMPRESSION: No acute findings. Discharge Plan Discharge Patient Disposition: Home Clinical Impression: Ankle sprain Qualifiers: Encounter type: initial encounter Involved ligament of ankle: unspecified ligament Laterality: right Qualified Code(s): S93.401A - Sprain of unspecified ligament of right ankle, initial encounter Condition: Stable Prescriptions: New hydrocodone-acetaminophen 5-325 mg tablet 1 tab PO BID PRN (Reason: pain (scale score 7-10)) Qty: 6 0RF No Action No Known Home Medications Discharge Orders: Discharge ED (Routine); Ordered 04/11/22 Ordered By: Darryl Pretty Referrals: Cresencio Lucero FNP-C [Primary Care Provider] - Discharge Diet: Usual diet Discharge Activity: Increase activity as tolerated Patient Instructions: Ankle Sprain (ED) Activity Restrictions/Additional Instructions: Activity as tolerated. Use elastic bandage for comfort and support. Use crutches until he can bear weight comfortably on the ankle. Take ibuprofen and acetaminophen to control pain. Use hydrocodone for severe pain. Follow-up with primary care in 3 to 5 days for recheck. Return to ED for new concerns. Most sprains will be most painful in the first 3 days after that you should start seeing improvement and ability to weight-bear. If not is recommended to be further evaluated by primary care for repeat evaluation and possible repeat x-rays. Stand Alone Forms: Work/School Release Coding Level of Care Code ED Cabinet Finisher for Parminder Mccord
--- NOTE | 2022-04-11 17:34 | XRR_ITS ---
PROCEDURE INFORMATION: Exam: XR Right Ankle Exam date and time: 04/11/2022 6:04 PM Age: 42 years old Clinical indication: Injury or trauma; Fall; Sprain or strain; Ankle; Right; Injury details: Fell down 2 steps; Additional info: Injury, fell, swelling, lateral pain TECHNIQUE: Imaging protocol: Radiologic exam of the Right ankle. Views: 3 or more views. COMPARISON: No relevant prior studies available. FINDINGS: Bones/joints: Osseous structures are intact. Negative for fracture. Joint spaces are preserved. Soft tissues: Normal. XR/XR ankle RT min 3V* [id number] IMPRESSION: No acute findings.
--- NOTE | 2022-04-11 17:34 | XRR_ITS ---
PROCEDURE INFORMATION: Exam: XR Right Tibia and Fibula Exam date and time: 04/11/2022 6:04 PM Age: 42 years old Clinical indication: Pain; Lower leg; Right; Additional info: Injury TECHNIQUE: Imaging protocol: Radiologic exam of the Right tibia and fibula. Views: 2 views. COMPARISON: No relevant prior studies available. FINDINGS: Bones/joints: Tibia and fibula are intact. Negative for fracture. Soft tissues: Normal. XR/XR tibia fibula RT 2V [id number] IMPRESSION: No acute findings.
--- NOTE | 2022-04-11 17:34 | XRR_ITS ---
PROCEDURE INFORMATION: Exam: XR Right Hand Exam date and time: 04/11/2022 6:04 PM Age: 42 years old Clinical indication: Injury or trauma; Fall; Additional info: Injury, fell, ulnar side pain TECHNIQUE: Imaging protocol: Radiologic exam of the Right hand. Views: 3 or more views. COMPARISON: No relevant prior studies available. FINDINGS: Bones/joints: Osseous structures are intact. Negative for fracture. Joint spaces are preserved. Soft tissues: Soft tissue swelling along the ulnar aspect of the hand. XR/XR hand RT min 3V* [id number] IMPRESSION: No acute osseous abnormalities.
[2022-04-11 17:45] VITALS: RESP 16
[2022-04-11 17:53] VITALS: BP 138/83; PULSE 76; RESP 18; TEMP 36.7; O2SAT 96
[2022-04-11] MEDS: ketorolac 30 mg/mL INJ IVP (18:35)
== END 2022-04-11 19:11 | disposition home or self-care (01) ==
PROVIDERS: Emergency Provider Nurse Practitioner Family; PCP Nurse Practitioner
DX: S93.401A Sprain of unspecified ligament of right ankle, initial encounter (principal); F17.210 Nicotine dependence, cigarettes, uncomplicated; X50.1XXA Overexertion from prolonged static or awkward postures, initial encounter
CPT/HCPCS: 73130; 73590; 73610; 96374; 99284; E0114; J1885

== ENCOUNTER 2023-04-15 11:02 | Emergency (ER) | payer SELFPAY ==
[2023-04-15 11:07] VITALS: BP 103/72; PULSE 120; RESP 16; TEMP 36.7; O2SAT 99; BMI 23.5
--- NOTE | 2023-04-15 11:14 | W.ED.ABDPA2 ---
HPI - Abdominal Pain General: Chief Complaint: Abdominal Pain Stated Complaint: abd pain Time Seen by Provider: 04/15/23 11:11 Source: patient Mode of arrival: ambulatory History of Present Illness: 43-year-old male presents emergency room with left lower quadrant abdominal pain for the last couple of days with nausea. Denies any dysuria urgency or frequency hematuria. No fever sweats or chills. Patient states he has not had any bowel movements last couple of days. Denies fever sweats or chills has been very nauseous no hematemesis or coffee-ground emesis. No hematochezia or melena. Patient has had previous EGD that showed H. pylori several years ago no previous abdominal surgeries. MD elicited complaint: abdominal pain Onset (ago): day(s) (3-4) Pain Consistency: constant Location: LLQ Severity: moderate Quality: cramping Radiation: none Exacerbating factors: nothing Relieving factors: nothing Associated Symptoms: Reports GI cramping, nausea and poor appetite; Denies anorexia, belching, bloating, change in bowel habits, change in stool character, chills, coffee ground emesis, constipation, diarrhea, dyspepsia, dysuria, excessive flatus, fever(s), heartburn, hematochezia, hematuria, hematemesis, fecal incontinence, loose stools, melena, syncope and vomiting Review of Systems Const: Denies: fever(s) or chills Card: Denies: chest pain or syncope Resp: Denies: dyspnea GI: Reports: nausea and GI cramping; Denies: abdominal pain, vomiting, hematemesis, coffee ground emesis, heartburn, diarrhea, constipation, bloating, belching, excessive flatus, fecal incontinence, change in bowel habits, change in stool character, hematochezia or melena : Denies: dysuria, urinary frequency, urinary urgency or hematuria Musc: Denies: neck pain or back pain Skin/Breast: Denies: rash PFSH ED PFSH: Medical History (Updated 04/15/23 @ 13:16 by Roland Valencia DO) No pertinent past medical history Surgical History History of surgery on left wrist Family History Father CAD (coronary artery disease) Mother Rheumatoid arthritis Social History Smoking and tobacco/nicotine status: current every day tobacco/nicotine user cigarettes Packs smoked per day: 1 Years cigarettes smoked: 35 Second hand smoke exposure: No Alcohol intake: never Substance/Drug Use: never Lives independently: Yes Household members: spouse Marital status: Current occupational status: employed 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 Current gender identity: Male Physical Exam Const: GENERAL APPEARANCE: cooperative and comfortable ORIENTATION/CONSCIOUSNESS: Yes awake, Yes oriented to person, Yes oriented to place and Yes oriented to time HENMT: COMMON NORMALS: normocephalic, atraumatic and hearing grossly normal bilaterally HEAD & SCALP: normocephalic and atraumatic Resp: COMMON NORMALS: normal respiratory effort, No retractions, No use of accessory muscles and clear to auscultation bilaterally AUSCULTATION: clear to auscultation bilaterally Cardio: COMMON NORMALS: regular rate, regular rhythm and No murmurs present (Cardio) RATE: regular rate RHYTHM: regular rhythm GI: COMMON NORMALS: No hepatosplenomegaly present AUSCULTATION: Yes normoactive bowel sounds PALPATION: Yes Tenderness to palpation present (GI) Details: LLQ, No Guarding due to palpation present (GI) and Yes No hepatosplenomegaly present Extremity: COMMON NORMALS: normal to inspection, capillary refill normal, no clubbing, cyanosis or edema, no calf tenderness and no pedal edema Neuro: SENSORIUM/ORIENTATION: Yes oriented to person, Yes oriented to place and Yes oriented to time Skin: COMMON NORMALS: no rashes or lesions noted GENERAL SKIN EXAM: no rashes or lesions noted Course Vital Signs: Vital signs: Vital Signs Temperature 98.0 F 04/15/23 11:07 Pulse Rate 120 H 04/15/23 11:07 Respiratory Rate 16 04/15/23 11:07 Blood Pressure 103/72 04/15/23 11:07 Pulse Oximetry 99 04/15/23 11:07 Oxygen Delivery Me thod Room Air 04/15/23 11:07 MDM - Abdominal Pain Medical Decision Making Mild leukocytosis CT does not show anything acute. Potassium slightly elevated think that is from hemolysis rest of his electrolytes and kidney function are normal liver functions are unremarkable. UA did not show any cystitis CT showed mild constipation but no other acute process. Discharge patient home lactulose to use as needed until desired results achieved to be given IV fluids. Follow-up as necessary return if is further problems. Differential Diagnosis Likely abdominal pain, acute appendicitis, calculus of kidney, constipation, diverticulitis, pancreatitis and small bowel obstruction Medical Records I reviewed the patient's medical records. Lab Data I reviewed the patient's lab results. 04/15/23 11:19 04/15/23 11:19 Labs/Radiology: Laboratory Results WBC 12.89 10^3/uL (3.29-11.43) H 04/15/23 11:19 RBC 5.45 10^6/uL (3.85-5.65) 04/15/23 11:19 Hgb 17.10 g/dL (11.27-16.99) H 04/15/23 11:19 Hct 50.9 % (37-53) 04/15/23 11:19 MCV 93.4 fl (82-101) 04/15/23 11:19 MCH 31.4 pg (27-33) 04/15/23 11:19 MCHC 33.6 g/dL (30-55) 04/15/23 11:19 RDW 12.6 % (12.1-15.1) 04/15/23 11:19 Plt Count 595 10^3/cmm (157-399) H 04/15/23 11:19 MPV 8.6 fL (7.4-10.4) 04/15/23 11:19 Neut % (Auto) 69.3 % 04/15/23 11:19 Lymph % (Auto) 22.1 % 04/15/23 11:19 [place] % (Auto) 7.2 % 04/15/23 11:19 Eos % (Auto) 0.6 % 04/15/23 11:19 Baso % (Auto) 0.5 % 04/15/23 11:19 Neut # (Auto) 8.92 10^3/uL (1.8-7.7) H 04/15/23 11:19 Lymph # (Auto) 2.9 10^3/uL (0.8-4.8) 04/15/23 11:19 [place] # (Auto) 0.9 10^3/uL (0.2-0.9) 04/15/23 11:19 Eos # (Auto) 0.1 10^3/uL (0.0-0.8) 04/15/23 11:19 Baso # (Auto) 0.1 10^3/uL (0.0-0.1) 04/15/23 11:19 Nucleated RBC % (auto) 0 % 04/15/23 11:19 Nucleated RBCs # 0.0 /100WBC 04/15/23 11:19 Sodium 134 mmol/L (136-145) L 04/15/23 11:19 Potassium 5.2 mmol/L (3.5-5.1) H 04/15/23 11:19 Chloride 98 mmol/L (98-107) 04/15/23 11:19 Carbon Dioxide 23 mmol/L (22-29) 04/15/23 11:19 Anion Gap 18.2 (5-19) 04/15/23 11:19 BUN 19 mg/dL (6-20) 04/15/23 11:19 Creatinine 0.9 mg/dL (0.7-1.2) 04/15/23 11:19 GFR Calculation 92.1 mL/min (90-130) 04/15/23 11:19 Glucose 131 mg/dL (65-115) H 04/15/23 11:19 Calculated Osmolality 282 mOsm/kg (285-295) L 04/15/23 11:19 Calcium 10.4 mg/dL (8.5-10.5) 04/15/23 11:19 Total Bilirubin 0.3 mg/dL (0.15-1.2) 04/15/23 11:19 AST 16 U/L (0-40) 04/15/23 11:19 ALT 19 U/L (0-41) 04/15/23 11:19 Alkaline Phosphatase 111 U/L (40-130) 04/15/23 11:19 Total Protein 7.6 g/dL (6.6-8.7) 04/15/23 11:19 Albumin 4.4 g/dL (3.5-5.2) 04/15/23 11:19 Globulin 3.2 g/dL (1.3-4.6) 04/15/23 11:19 Lipase 41 U/L (13-60) 04/15/23 11:19 Urine Color Yellow (Yellow) 04/15/23 12:10 Urine Appearance Clear (CLEAR) 04/15/23 12:10 Urine pH 6 (5-7) 04/15/23 12:10 Ur Specific [place] 1.015 (1.005-1.030) 04/15/23 12:10 Urine Protein Neg (Negative) 04/15/23 12:10 Urine Glucose (UA) Norm (Normal) 04/15/23 12:10 Urine Ketones 1+ (Negative) H 04/15/23 12:10 Urine Blood Neg (Negative) 04/15/23 12:10 Urine Nitrate Negative (Negative) 04/15/23 12:10 Urine Bilirubin Neg (Negative) 04/15/23 12:10 Urine Urobilinogen Norm mg/dL (Negative) 04/15/23 12:10 Ur Leukocyte Esterase Negative (Negative) 04/15/23 12:10 All radiology interpretation(s) finalized by discharge Discharge Plan Discharge Patient Disposition: Home Clinical Impression: Abdominal pain, Constipation Condition: Stable Prescriptions: New lactulose 20 gram/30 mL solution 30 g PO Q2H 1 Days Qty: 540 0RF Rx Instructions: until desired laxative effect No Action Gurvinder Back and Body 500-32.5 mg Tablet 1 tab PO PRN PRN (Reason: Pain) Discharge Orders: Discharge ED (Routine); Ordered 04/15/23 Ordered By: Roland Valencia Referrals: Cresencio Lucero, PROCUREMENT COST COORDINATOR-C [Primary Care Provider] - Discharge Diet: Usual diet Discharge Activity: Increase activity as tolerated Patient Instructions: Abdominal Pain (ED), Opioid Safety, Pain Management Activity Restrictions/Additional Instructions: Thank you for choosing [facility] for your healthcare needs today. Please realize this is an emergency room and that we are providing you with a medical screening exam and this may not be complete and all inclusive of all the testing and or work up that you may need to determine your ailment or severity of your illness. It is very important that you follow up as instructed or that you return to the Emergency Department should you have concerns or if your condition changes or worsens in any way. Coding Level of Care Code ED Inbound Telemarketer for Parminder Mccord
--- NOTE | 2023-04-15 11:18 | CT_ITS ---
WS: [id number] CT ABDOMEN PELVIS TECHNIQUE: Contrast-enhanced CT of the abdomen and pelvis with coronal and sagittal reformatted image s. CLINICAL INFORMATION: abd pain COMPARISON: None. DLP: 391.[address] scans at [facility] use at least one of these dose optimization techniques: automated e xposure control; mA and/or kV adjustment per patient size (includes targeted exams where dose is matc hed to clinical indication); or iterative reconstruction. FINDINGS: Lung bases are well aerated. Normal GE junction. Mild diffuse fatty infiltration of the liver. Gallbl adder is contracted. Normal portal vein and splenic vein. Normal spleen. Normal pancreatic parenchyma l enhancement. Normal caliber abdominal aorta. Celiac and SMA are patent. Proximal renal arteries are patent. Adrenal glands are normal. Normal renal parenchymal enhancement. No hydronephrosis. Diverticulosis. No evidence of acute diverticulitis. No evidence of high-grade small or large bowel o bstruction. Mild constipation. Normal appendix in the RIGHT lower quadrant. Prominent calcified prost ate measuring 4.8 cm. Chronic bilateral pars defects L5-S1. Slight grade 1 anterolisthesis L5 on S1. Mild disc bulging L4-5 . Small central protrusion L4-5 with narrowing of the subarticular recess bilaterally. IMPRESSION: 1. Sigmoid diverticulosis. No evidence of acute diverticulitis. 2. No hydronephrosis in either kidney. 3. Mild transverse colon constipation. 4. Gallbladder is contracted. 5. Chronic bilateral pars defects L5-S1 with grade 1 anterolisthesis. 6. Central disc protrusion L4-5 with narrowing of the subarticular recess bilaterally.
[2023-04-15 11:25] LABS: Basophils # 0.1 10^3/uL (0.0-0.1); Basophils % 0.5 %; Eosinophils # 0.1 10^3/uL (0.0-0.8); Eosinophils % 0.6 %; Hematocrit 50.9 % (37-53); Lymphocytes # 2.9 10^3/uL (0.8-4.8); Lymphocytes % 22.1 %; Mean Corpuscular HGB Conc 33.6 g/dL (30-55); Mean Corpuscular Hemoglobin 31.4 pg (27-33); Mean Corpuscular Volume 93.4 fl (82-101); Mean Platelet Volume 8.6 fL (7.4-10.4); Monocytes # 0.9 10^3/uL (0.2-0.9); Monocytes % 7.2 %; Neutrophils # 8.92 10^3/uL (1.8-7.7); Neutrophils % 69.3 %; Nucleated Red Blood Cells % 0 %; Platelet Count 595 10^3/cmm (157-399); Red Blood Count 5.45 10^6/uL (3.85-5.65); Red Cell Distribution Width 12.6 % (12.1-15.1); White Blood Count 12.89 10^3/uL (3.29-11.43)
[2023-04-15 11:42] LABS: Alanine Aminotransferase 19 U/L (0-41); Albumin Level 4.4 g/dL (3.5-5.2); Alkaline Phosphatase 111 U/L (40-130); Anion Gap 18.2 (5-19); Aspartate Amino Transferase 16 U/L (0-40); Blood Urea Nitrogen 19 mg/dL (6-20); Calcium 10.4 mg/dL (8.5-10.5); Carbon Dioxide 23 mmol/L (22-29); Chloride 98 mmol/L (98-107); Globulin 3.2 g/dL (1.3-4.6); Glomerular Filtration Rate 92.1 mL/min (90-130); Glucose 131 mg/dL (65-115); Lipase 41 U/L (13-60); Osmolality Calculated 282 mOsm/kg (285-295); Potassium 5.2 mmol/L (3.5-5.1); Sodium 134 mmol/L (136-145); Total Bilirubin 0.3 mg/dL (0.15-1.2); Total Protein 7.6 g/dL (6.6-8.7)
[2023-04-15] MEDS: iohexol 350 mg/mL 500 mL Btl (per mL) IV (12:11)
[2023-04-15 12:17] LABS: Add Urine Microscopic? NO; Charge for UA Resulting for Rev
[2023-04-15 12:27] LABS: Bilirubin Urine Neg (Negative); Blood Urine Neg (Negative); Glucose Urine UA Norm (Normal); Ketones Urine 1+ (Negative); Leukocyte Esterase Urine Negative (Negative); Nitrate Urine Negative (Negative); Protein Urine Neg (Negative); Specific Gravity, Urine 1.015 (1.005-1.030); Urine Appearance Clear (CLEAR); Urine Color Yellow (Yellow); Urobilinogen Urine Norm (Negative); pH Urine 6 (5-7)
[2023-04-15] MEDS: sodium chloride 0.9% 1,000 ML 999 ML IV (13:00)
== END 2023-04-15 13:48 | disposition home or self-care (01) ==
PROVIDERS: Emergency Provider Family Medicine; PCP Nurse Practitioner
DX: K59.00 Constipation, unspecified (principal); F17.210 Nicotine dependence, cigarettes, uncomplicated
CPT/HCPCS: 36415; 74177; 80053; 81003; 83690; 85025; 96360; 99285; J7030; Q9967

== ENCOUNTER 2024-06-16 12:43 | Emergency (ER) | payer SELFPAY ==
[2024-06-16 12:47] VITALS: BP 137/79; PULSE 97; RESP 18; TEMP 36.7; O2SAT 98; BMI 24.0
--- NOTE | 2024-06-16 12:53 | XR_ITS ---
WS: [id number] Exam: XR wrist LT min 3V* [id number] Date/Time of Exam: 06/16/2024 1:14 PM Reason For Exam: pain for months No acute fracture. Healed fracture of the scaphoid with screw fixation noted. There is degenerative change at the articulation of the scaphoid and greater and lesser multangular. 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 Normal soft tissues. XR/XR wrist LT min 3V* [id number] IMPRESSION: 1. Mild degenerative changes in the wrist. No acute fracture. 2. Healed fracture of the scaphoid with screw fixation.
[2024-06-16 13:44] VITALS: BP 124/85; PULSE 92; O2SAT 98
--- NOTE | 2024-06-16 13:47 | W.ED.EXTPRO ---
HPI - Extremity Problem General: Chief complaint: Extremity Injury, Upper Stated complaint: left wrist area Time Seen by Provider: 06/16/24 13:06 Source: patient Mode of arrival: ambulatory Limitations: no limitations History of Present Illness: Patient is a 44-year-old male who presents emergency department complaining of left wrist pain for several months. He states that the pain initially began when it last noted, he tripped and caught himself in an outstretched left hand but primarily made impact to the ulnar side and states pain has been intermittent since. He does note a history of previous surgery in the left wrist, has not followed up with orthopedics or primary care. He has not taken any medications or done any conservative treatments for the pain when it comes on, and has continued to use it as normal. States that intermittently the dorsum of his left hand will swell, no neurovascular symptoms reported or other symptoms at this time. Vitals within normal limits. MD Complaint: extremity pain and joint pain Onset (ago): month(s) Pain Consistency: intermittent Location: left and upper extremity Exacerbating factors: range of motion Associated symptoms: Reports no associated symptoms; Deny chest pain, fever(s) or rash Related Data Home Medications ?Medication ?Instructions ?Recorded ?Confirmed aspirin-caffeine 500 mg-32.5 mg 1 tab PO PRN PRN Pain 04/15/23 04/15/23 tablet (Gurvinder Back and Body) Previous Rx's ?Medication ?Instructions ?Recorded prednisone 20 mg tablet 60 mg (3 x 20 mg) PO ONCE 5 days 06/16/24 #15 tabs Allergies Allergy/AdvReac Type Severity Reaction Status Date / Time quetiapine (From Seroquel) Allergy ADR-Vomitin Verified 05/19/22 13:12 g tramadol AdvReac Intermediate itching Verified 05/19/22 13:12 Review of Systems General: Reports: 10 or more systems reviewed and unremarkable except in HPI and below Const: Denies: fever(s) or chills Card: Denies: chest pain Resp: Denies: dyspnea or productive cough GI: Denies: abdominal pain, nausea, vomiting or diarrhea : Denies: flank pain Musc: Reports: extremity pain, extremity swelling, joint pain, joint swelling and limited range of motion; Denies: neck pain, back pain, joint redness, joint warmth or muscle weakness Skin/Breast: Denies: rash Neuro: Denies: headache(s), numbness in extremities or weakness in extremities PFSH ED PFSH: Medical History No pertinent past medical history Surgical History History of surgery on left wrist Family History Father CAD (coronary artery disease) Mother Rheumatoid arthritis Social History Smoking and tobacco/nicotine status: current every day tobacco/nicotine user cigarettes Packs smoked per day: 1 Years cigarettes smoked: 35 Second hand smoke exposure: No Alcohol intake: never Substance/Drug Use: never Lives independently: Yes Household members: spouse Marital status: Current occupational status: employed 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 Current gender identity: Male Physical Exam Const: COMMON NORMALS: no acute distress, patient oriented x3, no limitations, healthy appearing, alert and well nourished HENMT: COMMON NORMALS: normocephalic and atraumatic HEAD & SCALP: normocephalic and atraumatic Neck/C-Spine: COMMON NORMALS: full ROM, supple and no meningeal signs Resp: COMMON NORMALS: normal respiratory effort, No use of accessory muscles and clear to auscultation bilaterally AUSCULTATION: clear to auscultation bilaterally Cardio: COMMON NORMALS: regular rate and regular rhythm RATE: regular rate RHYTHM: regular rhythm Extremity: COMMON NORMALS: full ROM, capillary refill normal, no joint enlargement and no clubbing, cyanosis or edema NARRATIVE EXTREMITY EXAM: Mild tender to palpation along ulnar aspect of left hand. No bruising, swelling, or other signs of deformity. Full range of motion, equal hedis registered nurse rn strength. Distal neurovascular exam intact. Neuro: COMMON NORMALS: patient oriented x3, moves all extremities, no focal motor deficits and no sensory deficits noted SENSORIUM/ORIENTATION: Yes alert MENINGEAL SIGNS: Yes no meningeal signs Skin: COMMON NORMALS: no rashes or lesions noted GENERAL SKIN EXAM: no rashes or lesions noted Course Vital Signs: Vital signs: Vital Signs Temperature 98.0 F 06/16/24 12:47 Pulse Rate 92 06/16/24 13:44 Respiratory Rate 18 06/16/24 12:47 Blood Pressure 124/85 06/16/24 13:44 Pulse Oximetry 98 06/16/24 13:44 Oxygen Delivery Me thod Room Air 06/16/24 12:47 MDM - Extremity (Nontraumatic) Medical Decision Making Patient presenting for months of intermittent left hand and wrist pain, stating he has a previous operation, appears he had a scaphoid fracture at that time requiring screw fixation. He had not been take any medications or performed any [id number] remedies for the pain, has not seen orthopedics since his surgery. Exam overall unremarkable aside from minimally reproducible tenderness palpation to the left ulnar hand. The x-ray did not show any acute findings, commenting that there appeared to be well-healing of the previous scaphoid surgery. Will start him on prednisone and have him follow-up with orthopedics here for further evaluation. Stable for discharge at this time. Lab Data Radiology Impressions Wrist X-Ray 06/16/24 12:53 IMPRESSION: 1. Mild degenerative changes in the wrist. No acute fracture. 2. Healed fracture of the scaphoid with screw fixation. All radiology interpretation(s) finalized by discharge Discharge Plan Discharge Patient Disposition: Home Clinical Impression: Chronic pain of left hand Condition: Stable Prescriptions: New prednisone 20 mg tablet 60 mg PO ONCE 5 Days Qty: 15 0RF No Action Gurvinder Back and Body 500-32.5 mg Tablet 1 tab PO PRN PRN (Reason: Pain) Discharge Orders: Discharge ED (Routine); Ordered 06/16/24 Ordered By: [place] Referrals: Cresencio Lucero, TON CONTAINER SHIPPER-C [Primary Care Provider] - Activity Restrictions/Additional Instructions: Follow-up with orthopedics. Begin taking ibuprofen, take prednisone as prescribed. Ice for pain, rest and recovery. Return with any new or worsening. Print Language: French Coding Level of Care Code ED [employer] Certified Network Associate for Parminder Mccord
--- NOTE | 2024-06-17 07:20 | DCPLANNER ---
messaged ortho for er f/u
== END 2024-06-16 13:46 | disposition home or self-care (01) ==
PROVIDERS: Emergency Provider Physician Assistant; PCP Nurse Practitioner
DX: M79.642 Pain in left hand (principal); F17.210 Nicotine dependence, cigarettes, uncomplicated
CPT/HCPCS: 73110; 99283